=== PATIENT | male | born 1935 | race Caucasian/White ===

== ENCOUNTER 2018-10-15 22:48 | Inpatient (IN) ==
[2018-10-15] MEDS ORDERED: ADENOSINE 3 MG/ML DISP.SYRIN IV ONE ×2 (23:03→23:13)
--- NOTE | 2018-10-15 23:04 | ERNOTE ---
Dyspnea - General Presenting Symptoms: shortness of breath Time Seen by Provider: 10/15/18 22:51 Source: patient, EMS Exam Limitations: no limitations - Immun/Allergies/Home Medications Immunizations: IMMUNIZATION HX Immunizations Up to Date No History of Influenza Vaccine No Hx Pneumococcal Vaccination No Allergies/Adverse Reactions: Allergies Penicillins Allergy (Verified 10/15/18 22:57) Home Medications: HOME MEDICATIONS Tamsulosin HCl [Flomax] 0.4 mg PO DAILY@1800 05/18/18 [Last Taken Unknown] - History of Present Illness Narrative: Pt states he has been not feeling well without specific symptoms for a couple of days. Tonight he was very tired and had a "hot flash", became short of breath and weak. He denies chest pain but states "it doesn't feel right". 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 Absent: fever, chills EYE: Absent: vision changes ENT: Absent: nose congestion, nasal drainage Respiratory: Present: shortness of breath. Absent: cough Cardiology: Absent: chest pain, edema Gastrointestinal/Abdominal: Present: other - states his stomach doesn't feel right. . Absent: nausea, vomiting, abdominal pain Genitourinary: Absent: frequency, dysuria Medical History (Last Reviewed 10/16/18 @ 03:20 by Albaro Olea DO) Acute liver failure Pancreatic cancer BPH (benign prostatic hyperplasia) Surgical History: Surgical History (Last Reviewed 10/16/18 @ 03:20 by Albaro Olea DO) H/O transurethral resection of prostate History of transurethral resection of prostate Family History: Family History (Last Reviewed 10/16/18 @ 03:20 by Albaro Olea DO) Other Family history non-contributory Social History: Preferred Language Icelandic Abuse History No History of abuse Psych History No pertinent hx (Last Updated 06/07/18 @ 17:44 by Aidan Urena DO) No Social History Section defined Physical Exam - Physical Exam General Appearance: Present: wd/wn, alert, mild distress Head Exam: Present: normal inspection, no evidence of injury Ears, Nose, Throat: Present: normal ENT inspection Neck: Present: normal inspection, nontender Respiratory: Present: no respiratory distress, normal breath sounds, no accessory muscle use Cardiovascular/Chest: Present: no murmur, tachycardia Gastrointestinal/Abdominal: Present: normal bowel sounds, nontender, soft Back Exam: Present: normal inspection, normal range of motion, no vertebral tenderness Extremity Exam: Present: normal inspection, normal range of motion, no edema Neurological Exam: Present: alert, oriented, normal mood/affect, no motor/sensory deficits Skin Exam: Present: warm/dry, pallor Progress - Results and Orders Patient's Lab Results:: I have reviewed the patient's lab results. Results and Orders: Laboratory Tests 10/15/18 10/15/18 10/15/18 23:59 23:59 23:59 WBC 11.2 H Hgb 13.9 Hct 41.3 L Plt Count 224 PT 13.0 H INR (Anticoag Therapy) 1.30 H PTT ([place]) 29.8 Sodium 136 Potassium 4.0 Chloride 101 Carbon Dioxide 24.5 BUN 25 H Creatinine 1.38 Random Glucose 279 H Calcium 9.3 Total Bilirubin 1.7 H AST 36 ALT 33 Alkaline Phosphatase 117 Troponin I 0.034 B-Natriuretic Peptide 6639 H Total Protein 6.9 Albumin 3.3 L - Vital Signs Patient's Vital Signs:: I have reviewed the patient's vital signs. - EKG EKG #1 EKG: atrial flutter, nonspecific ST T wave changes EKG read: Interp. by me - X-Ray X-Ray #1 X-Ray: chest Interpretation: Reviewed by me X-ray Comments: IMPRESSION: FINDINGS SUGGESTIVE OF INTERSTITIAL PULMONARY EDEMA/CHF. Electronically signed by Jayson May D.O. - Progress/Reassessment Progress:: Improved Progress Note-Subjective: 10/16/18 02:14 I spoke with he agrees with admit. 10/16/18 02:57 initially pt appeared to be in SVT, 6 mg adenosine was given without any response, 12 mg adenosine was given and pt had bradycardic ventricular response which showed underlying atrial flutter. Pt's ventricular rate fairly quickly came back up to the 130's and regular. 30 mg of cardizem was then given and shortly into the administration of cardizem the pt went into ventricular fi brillation cardizem was stopped. Defibrillation pads were applied and just before we were able defibrillate the patient spontaneously returned to the atrial flutter with RVR at 120-130 bpm. Labatolol was then given to assist in rate control which brought the rate down to 105-110 but his BP also declined to 90'/50's. HR over the next 60-90 min returned to the 120's as well as BP of 130's/60's. Metoprolol 5 mg was then given for rate control just prior to admission. Departure Clinical Impression: Atrial flutter with rapid ventricular response - Departure Disposition: Still a patient Condition: Fair
[2018-10-15] MEDS ORDERED: DILTIAZEM HCL 5 MG/ML VIAL IV ONE (23:16)
[2018-10-15] MEDS ORDERED: MORPHINE SULFATE 4 MG/ML SYRG ONE (23:26)
[2018-10-15] MEDS ORDERED: AMIODARONE HCL 50 MG/ML AMPUL IV STA (23:29)
[2018-10-16 00:16] LABS: Hematocrit 41.3 % (42.0-52.0); Hemoglobin 13.9 gm/dL (13.5-18.0); Mean Cell Volume 88.8 fl (78-100); Mean Corpuscular Hemoglobin 29.9 pg (27-31); Mean Corpuscular Hgb Conc 33.7 g/dl (32-36); Mean Platelet Volume 11.7 fl (8-11.3); Neutrophil # 7.5 K/mm3 (1.3-6.0); Neutrophil % 67.4 % (42-75.0); Platelet Count 224 K/mm3 (150-450); Red Blood Count 4.65 M/mm3 (4.7-6.0); Red Cell Distribution Width 13.8 % (11.5-14.0); White Blood Count 11.2 K/mm3 (4.0-10.5)
[2018-10-16 00:17] LABS: Albumin * 3.3 gm/dl (3.4-5.0); Anion Gap 14.5 mmol/L (6.8-13.8); BUN/Creatinine Ratio 18.1 (9.0-21.6); Bilirubin, Total 1.7 mg/dL (0.0-1.1); Ca. Corrected For Albumin 9.5 mg/dL (8.4-10.2); Calcium * 9.3 mg/dL (7.9-10.9); Carbon Dioxide 24.5 mmol/L (24-32.6); INR 1.3 INR (0.90-1.10); Partial Thrombolplastin Time 29.8 Seconds (24-32); Total Protein 6.9 gm/dL (6.2-8.2); Troponin I 0.034 ng/mL (0.00-0.10)
[2018-10-16] MEDS ORDERED: LABETALOL HCL 5 MG/ML VIAL IV ONE (00:32)
[2018-10-16] MEDS ORDERED: PROCHLORPERAZINE EDISYLATE 5 MG/ML VIAL IV ONE (01:11)
[2018-10-16] MEDS ORDERED: FUROSEMIDE 10 MG/ML VIAL IV ONE (02:21)
[2018-10-16] MEDS ORDERED: ENOXAPARIN SODIUM 100 MG/ML SYRG SC ONE (02:32)
[2018-10-16] MEDS ORDERED: ENOXAPARIN SODIUM 30 MG/0.3 ML SYRG SC ONE (02:32)
[2018-10-16] MEDS ORDERED: METOPROLOL TARTRATE 1 MG/ML AMPUL IV ONE ×2 (02:45→10:37)
[2018-10-16] MEDS ORDERED: METOPROLOL TARTRATE 25 MG TABLET PO SCH (09:00)
[2018-10-16] MEDS: ENOXAPARIN SODIUM 40 MG/0.4 ML SYRG SC SCH (10:35)
--- NOTE | 2018-10-16 10:38 | HP ---
Chief Complaint - Chief Complaint Date of Service: 10/16/18 Time of Service: 10:37 Chief Complaint: Shortness of breath History of Present Illness: Moe is an 83 yo male with recent diagnosis of pancreatic cancer and biliary obstruction who about 3 weeks ago underwent stenting of his biliary tract. Since then he reports he has been doing ok. He is set to see oncology next week to discuss chemotherapy. He reports last night prior to going to sleep he was having a hot flash, but occasionally gets these. He was awakened from sleep feeling significantly short of breath and having fast heart rate. He presented to the [facility] ER and was found to be in SVT with a rate of 130s. Per the ER documentation he was given 6 mg adenosine without any response, 12 mg adenosine was given and pt had bradycardic ventricular response which showed underlying atrial flutter. Pt's ventricular rate fairly quickly came back up to the 130's and regular. 30 mg of cardizem was then given and shortly into the administration of cardizem the pt went into ventricular fibrillation cardizem was stopped. Defibrillation pads were applied and just before they were able defibrillate, the patient spontaneously returned to the atrial flutter with RVR at 120-130 bpm. Labatolol was then given to assist in rate control which brought the rate down to 105-110 but his BP also declined to 90'/50's. HR over the next 60-90 min returned to the 120's as well as BP of 130's/60's. Metoprolol 5 mg was then given for rate control just prior to admission. With the metoprolol his heart rate remained in the 120s. Overall Moe reports feeling better at this time and has no concerns. He does admit to shortness of breath with activity but none while resting. He has had no recent changes in medication, and only takes Fosamax. He denies chest pain. Medical History (Last Reviewed 10/16/18 @ 04:13 by Meghan Grande RN) Acute liver failure Pancreatic cancer BPH (benign prostatic hyperplasia) Surgical History: Surgical History (Last Reviewed 10/16/18 @ 04:13 by Meghan Grande RN) H/O transurethral resection of prostate History of transurethral resection of prostate Family History: Family History (Last Reviewed 10/16/18 @ 04:13 by Meghan Grande RN) Other Family history non-contributory Social History: Patient Lives/Resources Home Utilized Occupation retired Preferred Language [place] Islander Do you have any confucianism or No cultural preference? Smoking Status Former smoker Have you smoked in the past 12 No months Do you dip or chew tobacco No Abuse History No History of abuse Psych History No pertinent hx Alcohol Use none Drug Use none (Last Updated 06/07/18 @ 17:44 by Aidan Urena DO) No Social History Section defined Review Of Systems (GEN) - Review of Systems Generalized/Overall Review: Present: Weakness. Absent: Chills, Fever EENTM: Present: No Symptoms Reported Respiratory: Present: Shortness of Breath. Absent: Cough Cardiac: Present: Palpitations. Absent: Chest Pain, Edema, Syncope Abdominal: Absent: Nausea, Vomiting Genitourinary: Present: No Symptoms Reported Musculoskeletal: Present: No Symptoms Reported Neurological: Present: No Symptoms Reported Skin: Present: No Symptoms Reported Endocrine: Present: No Symptoms Reported Immunizations: IMMUNIZATION HX Immunizations Up to Date No History of Influenza Vaccine No Hx Pneumococcal Vaccination No Allergies/Adverse Reactions: Allergies Allergy/AdvReac Type Severity Reaction Status Date / Time Penicillins Allergy Verified 10/15/18 22:57 Home Medications: HOME MEDICATIONS Tamsulosin HCl [Flomax] 0.4 mg PO DAILY@1800 05/18/18 [Last Taken Unknown] Exam - Exam Vital Signs: Vital Signs - Last Taken Temp 36.1 C 10/16/18 08:43 Pulse 130 H 10/16/18 10:07 Resp 24 H 10/16/18 08:43 BP 122/60 10/16/18 10:01 Pulse Ox 97 10/16/18 08:43 Constitutional: Present: Alert, Oriented x3, Cooperative ENT Exam: Present: hearing grossly normal Eye Exam: bilateral eye: normal inspection Respiratory: Present: lungs clear, no respiratory distress Cardiovascular/Chest: Present: no edema, tachycardia Abdomen: Present: Normal bowel sounds, soft, other - round Extremity: Present: normal inspection, normal capillary refill Skin Exam: Present: warm/dry, no cyanosis, jaundice Neurologic: Present: alert, normal mood/affect, oriented x 3 Appearance: Present: appropriate appearance, appropriate insight Eye contact: Present: cooperative, good eye contact, normal speech Thoughts: Present: normal thought pattern, no apparent hallucination Diagnostic Studies: Abnormal Lab Results 10/15/18 10/15/18 10/15/18 Range/Units 23:59 23:59 23:59 WBC 11.2 H (4.0-10.5) K/mm3 RBC 4.65 L (4.7-6.0) M/mm3 Hct 41.3 L (42.0-52.0) % MPV 11.7 H (8-11.3) fl Immature Gran # (Auto) 0.05 H (0.000-0.0310) K/mm3 Neutrophils # 7.5 H (1.3-6.0) K/mm3 PT 13.0 H (9.0-11.0) Seconds INR (Anticoag Therapy) 1.30 H (0.90-1.10) INR Anion Gap 14.5 H (6.8-13.8) mmol/L BUN 25 H (6-23) mg/dL Est GFR (Non-Af Amer) 53 L D (60-130) mL/min Random Glucose 279 H (70-110) mg/dL Total Bilirubin 1.7 H (0.0-1.1) mg/dL B-Natriuretic Peptide 6639 H (5-650) pg/mL Albumin 3.3 L (3.4-5.0) gm/dl Laboratory Results WBC 11.2 K/mm3 (4.0-10.5) H 10/15/18 23:59 RBC 4.65 M/mm3 (4.7-6.0) L 10/15/18 23:59 Hgb 13.9 gm/dL (13.5-18.0) 10/15/18 23:59 Hct 41.3 % (42.0-52.0) L 10/15/18 23:59 MCV 88.8 fl (78-100) 10/15/18 23:59 MCH 29.9 pg (27-31) 10/15/18 23:59 MCHC 33.7 g/dl (32-36) 10/15/18 23:59 RDW 13.8 % (11.5-14.0) 10/15/18 23:59 Plt Count 224 K/mm3 (150-450) 10/15/18 23:59 MPV 11.7 fl (8-11.3) H 10/15/18 23:59 Immature Gran % (Auto) 0.40 % (0.001-0.429) 10/15/18 23:59 Immature Gran # (Auto) 0.05 K/mm3 (0.000-0.0310) H 10/15/18 23:59 Neutrophils % 67.4 % (42-75.0) 10/15/18 23:59 Lymphocytes % 21.6 % (20-51) 10/15/18 23:59 Monocytes % 7.8 % (0.0-9) 10/15/18 23:59 Eosinophils % 2.3 % (0.0-3.0) 10/15/18 23:59 Basophils % 0.5 % (0.0-1.0) 10/15/18 23:59 Nucleated RBC % 0.0 k/mm3 (0-1) 10/15/18 23:59 Neutrophils # 7.5 K/mm3 (1.3-6.0) H 10/15/18 23:59 Lymphocytes # 2.41 k/mm3 (1.5-3.5) 10/15/18 23:59 Monocytes # 0.9 k/mm3 (0.0-1.0) 10/15/18 23:59 Eosinophils # 0.3 k/mm3 (0.0-0.7) 10/15/18 23:59 Absolute Basophils 0.1 k/mm3 (0.0-0.1) 10/15/18 23:59 PT 13.0 Seconds (9.0-11.0) H 10/15/18 23:59 INR (Anticoag Therapy) 1.30 INR (0.90-1.10) H 10/15/18 23:59 PTT ([place]) 29.8 Seconds (24-32) 10/15/18 23:59 Sodium 136 mmol/L (132-142) 10/15/18 23:59 Plasma Sodium 139 mmol/L (130-142) 10/15/18 23:59 Potassium 4.0 mmol/L (3.4-4.6) 10/15/18 23:59 Chloride 101 mmol/L (97-106) 10/15/18 23:59 Carbon Dioxide 24.5 mmol/L (24-32.6) 10/15/18 23:59 Anion Gap 14.5 mmol/L (6.8-13.8) H 10/15/18 23:59 BUN 25 mg/dL (6-23) H 10/15/18 23:59 Creatinine 1.38 mg/dL (0.4-1.4) 10/15/18 23:59 Est GFR (Non-Af Amer) 53 mL/min (60-130) L D 10/15/18 23:59 BUN/Creatinine Ratio 18.1 (9.0-21.6) 10/15/18 23:59 Random Glucose 279 mg/dL (70-110) H 10/15/18 23:59 Calcium 9.3 mg/dL (7.9-10.9) 10/15/18 23:59 Calcium Adj for Albumin 9.5 mg/dL (8.4-10.2) 10/15/18 23:59 Total Bilirubin 1.7 mg/dL (0.0-1.1) H 10/15/18 23:59 AST 36 U/L (0-48) 10/15/18 23:59 ALT 33 U/L (19-67) 10/15/18 23:59 Alkaline Phosphatase 117 U/L (50-170) 10/15/18 23:59 Troponin I 0.034 ng/mL (0.00-0.10) 10/15/18 23:59 B-Natriuretic Peptide 6639 pg/mL (5-650) H 10/15/18 23:59 Total Protein 6.9 gm/dL (6.2-8.2) 10/15/18 23:59 Albumin 3.3 gm/dl (3.4-5.0) L 10/15/18 23:59 Assessment/Plan - Narrative Narrative: Moe is an 83 yo male with recent diagnosis of pancreatic cancer with biliary obstruction requiring biliary stenting. He will be admitted for new onset atrial flutter with rapid ventricular response of unknown etiology. Initially tried to control heart rate with metoprolol but this was unsuccessful. He will be started on diltiazem IV then continued on oral for rate control. 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 - Assessment/Plan (1) Atrial flutter with rapid ventricular response Problem: Acute (2) Pancreatic cancer Problem: Acute (3) Biliary obstruction Problem: Acute
[2018-10-16] MEDS: DILTIAZEM HCL 30 MG TABLET PO SCH ×2 (13:26→20:02)
[2018-10-16] MEDS ORDERED: DILTIAZEM HCL 5 MG/ML VIAL IV ONE (14:38)
[2018-10-16] MEDS ORDERED: DILTIAZEM HCL 30 MG TABLET PO ONE ×2 (17:30→22:43)
[2018-10-17] MEDS: DILTIAZEM HCL 60 MG TABLET PO SCH ×3 (08:02→23:25)
[2018-10-17 08:41] LABS: Hematocrit 40.3 % (42.0-52.0); Hemoglobin 13.7 gm/dL (13.5-18.0); Mean Cell Volume 88.8 fl (78-100); Mean Corpuscular Hemoglobin 30.2 pg (27-31); Mean Platelet Volume 11.7 fl (8-11.3); Neutrophil # 6.5 K/mm3 (1.3-6.0); Platelet Count 263 K/mm3 (150-450); Red Blood Count 4.54 M/mm3 (4.7-6.0); White Blood Count 9.6 K/mm3 (4.0-10.5)
[2018-10-17 08:54] LABS: Albumin * 3.3 gm/dl (3.4-5.0); Anion Gap 17.6 mmol/L (6.8-13.8); BUN/Creatinine Ratio 21.2 (9.0-21.6); Bilirubin, Total 1.5 mg/dL (0.0-1.1); Ca. Corrected For Albumin 9.3 mg/dL (8.4-10.2); Calcium * 9.1 mg/dL (7.9-10.9); Carbon Dioxide 23.2 mmol/L (24-32.6); Potassium 3.8 mmol/L (3.4-4.6); Total Protein 6.9 gm/dL (6.2-8.2)
[2018-10-17 09:08] LABS: Troponin I 0.035 ng/mL (0.00-0.10)
[2018-10-17] MEDS: AMIODARONE HCL 200 MG TABLET PO SCH ×2 (10:13→17:25)
[2018-10-17] MEDS: ENOXAPARIN SODIUM 40 MG/0.4 ML SYRG SC SCH (10:22)
[2018-10-17] MEDS: RIVAROXABAN 20 MG TABLET PO SCH (14:02)
--- NOTE | 2018-10-17 16:51 | PN ---
Subjective - Date and Time Seen Date: 10/17/18 Time: 16:51 Subjective Narrative: Patient much more comfortable today than previous night of admission. Heart rate still in the 120s-130s despite diltiazem and amiodarone therapy. He does not feel this, he is asymptomatic and maintaining good sats. He denies any chest pain or shortness of breath at this time. No acute events overnight, states he feels well. Objective - Review of Systems Generalized/Overall Review: Reports: Weakness. Denies: Chills, Fever EENTM: Reports: No Symptoms Reported Respiratory: Denies: Cough, Shortness of Breath Cardiac: Denies: Chest Pain, Palpitations Abdominal: Denies: Nausea, Vomiting Genitourinary Symptoms: Reports: No Symptoms Reported Musculoskeletal Complaints: Reports: No Symptoms Reported Neurological: Reports: No Symptoms Reported Skin: Reports: No Symptoms Reported Endocrine: Reports: No Symptoms Reported - Vitals Vitals: Last Vital Signs Temp 37.0 C 10/17/18 14:20 Pulse 129 H 10/17/18 16:19 Resp 18 10/17/18 14:20 BP 108/80 10/17/18 16:19 Pulse Ox 98 10/17/18 14:20 - Abnormal Lab Findings Abnormal Lab Findings: Abnormal Lab Results 10/17/18 10/17/18 Range/Units 08:25 08:25 RBC 4.54 L (4.7-6.0) M/mm3 Hct 40.3 L (42.0-52.0) % MPV 11.7 H (8-11.3) fl Immature Gran # (Auto) 0.04 H (0.000-0.0310) K/mm3 Neutrophils # 6.5 H (1.3-6.0) K/mm3 Carbon Dioxide 23.2 L (24-32.6) mmol/L Anion Gap 17.6 H (6.8-13.8) mmol/L BUN 29 H (6-23) mg/dL Est GFR (Non-Af Amer) 53 L (60-130) mL/min Random Glucose 171 H D (70-110) mg/dL Total Bilirubin 1.5 H (0.0-1.1) mg/dL B-Natriuretic Peptide 6831 H (5-650) pg/mL Albumin 3.3 L (3.4-5.0) gm/dl - Exam Constitutional: Present: Alert, Oriented x3, Elderly, Obese ENT Exam: Present: hard of hearing Neck: Present: supple Respiratory: Present: lungs clear, normal breath sounds Cardiovascular/Chest: Present: no edema, tachycardia Abdomen: Present: Normal bowel sounds, soft, nontender /Rectal: Present: Exam deferred Skin Exam: Present: normal color, warm/dry Appearance: Present: appropriate appearance, appropriate insight Eye contact: Present: cooperative, good eye contact Thoughts: Present: normal thought pattern, normal mood /affect Assessment/Plan Plan Narrative: Patient is a fairly poor historian, unsure as to what is going on with his possible pancreatic cancer. States he is headed to [place] in 4 days to see his oncologist to discuss this. This is making treatment of his a flutter slightly more complicating as I do not know his prognosis and therefore do not know if he needs aggressive cardiac management including ablation of his a flutter. Currently on amiodarone and diltiazem which is keeping him slightly controlled in the 120s which is better than what he came in on, but more so he is asymptomatic and not having any issues from this elevated rate. Also when his rate was better controlled he had difficulty maintaining blood pressures and so trying to decide if being more aggressive with his rate control is going to be beneficial for him. More than likely he would be better off going on hospice care for comfort measures if he truly has pancreatic cancer but this is unknown at this time and waiting for records from [place]. Waiting on results for an echo that was done today. Currently patient feels well and asymptomatic. Started him on Xarelto for blood thinning due to his a flutter. He is on a regular diet. His home medications for his chronic medical issues have been restarted. The nurses will call me with any questions or concerns in regards to his health. - Problems/Diagnosis (1) Atrial flutter with rapid ventricular response Problem: Acute (2) Pancreatic cancer Problem: Acute (3) Biliary obstruction Problem: Acute
[2018-10-18] MEDS: AMIODARONE HCL 200 MG TABLET PO SCH ×3 (01:41→17:15)
[2018-10-18] MEDS: DILTIAZEM HCL 60 MG TABLET PO SCH ×2 (08:09→17:14)
[2018-10-18] MEDS: RIVAROXABAN 20 MG TABLET PO SCH (08:09)
[2018-10-18] MEDS: ENOXAPARIN SODIUM 40 MG/0.4 ML SYRG SC SCH (10:16)
--- NOTE | 2018-10-18 13:19 | ECHO ---
This report is available in the EMR
[2018-10-18] MEDS ORDERED: METOPROLOL TARTRATE 1 MG/ML AMPUL IV ONE (15:35)
--- NOTE | 2018-10-18 18:47 | DS ---
(1) Atrial flutter with rapid ventricular response Problem: Acute (2) Pancreatic cancer Problem: Acute (3) Biliary obstruction Problem: Acute Description of Stay: 83-year-old patient presented to the hospital with palpitations shortness of breath. Was found to be in SVT, was given adenosine which brought him back down into an underlying rhythm of atrial flutter. He was started on a beta-yevgeniy but this made his blood pressure too low and he became symptomatic while on this so this was stopped. He was then started on Cardizem which helped with his rate but he was stated in the 130s so amiodarone was also started. Between the 2 medications he is been asymptomatic in the 120s and 130s since arrival here. Patient started going in and out of SVT over the last 12-18 hours at an increasing rate. He has roughly 3-5 beats of V. tach 2-3 times per minute currently. He again is unable to tolerate a beta-yevgeniy because it lowers his blood pressure to the point where he becomes symptomatic (short of breath, dizzy, lightheaded). I called and spoke with a patient accounting representative at the [facility] who was able to look at his information and thinks that possibly the patient was going into V. tach due to his worsening ventricular function as he had an echo done here that showed him to have an ejection fraction of 31%. Nutrition Manager stated that he would be willing to accept the patient the patient wished to be transferred up there tonight for workup of his heart condition. He was very pleasant and offered great insight and help with this condition at this time. He also stated that he did not think he needed to be on Xarelto but wanted to leave this up to the patient's choice after explaining both the pros and the cons of continuing this medication. Patient and the family decided that they wished to speak with the oncologist about this before starting it, the medication will be sent to the pharmacy if they decided that it was needed. The patient has a history of adenocarcinoma of the pancreas and is planning on seeing his oncologist in 3 days from now. His prognosis is unknown and he is unsure as to whether or not he wants to undergo a cardiac workup at this time. I explained to him that he could be transferred up there and begin that process if he wishes to. The patient accounting representative at the [facility] were willing to do everything thye could to help him but I also explained to him that he may have a poor prognosis with his cancer and that the workup and treatment that comes from what is discovered may not be worth the effort that is going into fixing his heart if he only had a short period of time left to live. The time may be better spent with family and friends. I explained the risk of ventricular tachycardia with the patient, his , and his son-in-law in detail including the likelihood of if he were to to go into V. tach and not come out of it as he has been. The patient and his asked if I thought he would be able to make it until Monday to see his oncologist and I told in the simple answer was I did not know. The patient then expressed desire to go home so that he can watch basketball in his house, sleep in his bed, and take a hot shower if he wished. I told him I would send him home on the amiodarone dose and Cardizem dose that he was receiving here in the hospital and that he should take both medicines as directed until he sees his oncologist. I did explain to him that he needs to either stay there if he gets good news from the oncologist and have a workup started with the cardiology team up there if they feel like that is appropriate or he may return in follow-up with me early next week to discuss how everything went with oncology and cardiology depending on the prognosis of his cancer. Both the patient and his family were appreciative and pleasant to speak with during this hard time. He was discharged home in critical condition and plans to follow-up with his oncologist, possible patient accounting representative, and possibly myself next week. They definitely can call the clinic with any questions or concerns that they may have. Procedures Performed: none Results and Findings: Lab Pending Results 10/15/18 23:59: WBC 11.2 H, RBC 4.65 L, Hgb 13.9, Hct 41.3 L, MCV 88.8, MCH 29.9, MCHC 33.7, RDW 13.8, Plt Count 224, MPV 11.7 H, Immature Gran % (Auto) 0.40, Immature Gran # (Auto) 0.05 H, Neutrophils % 67.4, Lymphocytes % 21.6, Monocytes % 7.8, Eosinophils % 2.3, Basophils % 0.5, Nucleated RBC % 0.0, Neutrophils # 7.5 H, Lymphocytes # 2.41, Monocytes # 0.9, Eosinophils # 0.3, Absolute Basophils 0.1 10/15/18 23:59: PT 13.0 H, INR (Anticoag Therapy) 1.30 H, PTT ([place]) 29.8 10/15/18 23:59: Sodium 136, Plasma Sodium 139, Potassium 4.0, Chloride 101, Carbon Dioxide 24.5, Anion Gap 14.5 H, BUN 25 H, Creatinine 1.38, Est GFR (Non- Af Amer) 53 L D, BUN/Creatinine Ratio 18.1, Random Glucose 279 H, Calcium 9.3, Calcium Adj for Albumin 9.5, Total Bilirubin 1.7 H, AST 36, ALT 33, Alkaline Phosphatase 117, Troponin I 0.034, B-Natriuretic Peptide 6639 H, Total Protein 6.9, Albumin 3.3 L 10/17/18 08:25: WBC 9.6, RBC 4.54 L, Hgb 13.7, Hct 40.3 L, MCV 88.8, MCH 30.2, MCHC 34.0, RDW 14.0, Plt Count 263, MPV 11.7 H, Immature Gran % (Auto) 0.40, Immature Gran # (Auto) 0.04 H, Neutrophils % 67.0, Lymphocytes % 20.8, Monocytes % 8.3, Eosinophils % 2.9, Basophils % 0.6, Nucleated RBC % 0.0, Neutrophils # 6.5 H, Lymphocytes # 2.00, Monocytes # 0.8, Eosinophils # 0.3, Absolute Basophils 0.1 10/17/18 08:25: Sodium 137, Plasma Sodium 138, Potassium 3.8, Chloride 100, Carbon Dioxide 23.2 L, Anion Gap 17.6 H, BUN 29 H, Creatinine 1.37, Est GFR (Non-Af Amer) 53 L, BUN/Creatinine Ratio 21.2, Random Glucose 171 H D, Calcium 9.1, Calcium Adj for Albumin 9.3, Total Bilirubin 1.5 H, AST 39, ALT 44, Alkaline Phosphatase 121, Troponin I 0.035, B-Natriuretic Peptide 6831 H, Total Protein 6.9, Albumin 3.3 L Discharge Location: Home Disposition: Home self-care Condition: Critical Discharge Activity: Activity as tolerated Discharge Diet: General/regular food Referrals: Aidan Urena DO [Primary Care Provider] - (Please make appointment to see me either Monday or Monday of next week) Additional Patient Instructions (free text): -Please make TCM appointment unless half-way discharge. Thank you! Macie @ [phone]. Prescriptions (Any new or edited meds): Amiodarone HCl [Cordarone] 400 mg PO Q8H #90 tab Diltiazem HCl [Cardizem] 60 mg PO Q8H #90 tab Rivaroxaban [Xarelto] 20 mg PO DAILY #30 tab Tamsulosin HCl [Flomax] 0.4 mg PO DAILY@1800 #30 cap.sr.24h Complete Home Medications List: Complete Home Medication List: Amiodarone HCl [Cordarone] 400 mg PO Q8H #90 tab 10/18/18 Diltiazem HCl [Cardizem] 60 mg PO Q8H #90 tab 10/18/18 Rivaroxaban [Xarelto] 20 mg PO DAILY #30 tab 10/18/18 Tamsulosin HCl [Flomax] 0.4 mg PO DAILY@1800 #30 cap.sr.24h 10/18/18
[2018-10-18 20:46] VITALS: BP 123/69
== END 2018-10-18 19:45 | disposition home or self-care (01) | DRG 308 ==
LOC: ER 22:48 → MS 10-16 02:20
PROVIDERS: ADMIT Family Medicine; ATTEND Family Medicine
DX: I48.92 Unspecified atrial flutter; K83.1 Obstruction of bile duct; C25.9 Malignant neoplasm of pancreas, unspecified
CPT/HCPCS: 36415; 71010; 71045; 80053; 83519; 83880; 84484; 85025; 85610; 85730; 93005; 93306; 96374; 96375; 96376; 99285

== ENCOUNTER 2018-11-02 23:35 | Observation (INO) ==
--- NOTE | 2018-11-02 23:57 | ERNOTE ---
Dyspnea - General Presenting Symptoms: shortness of breath Time Seen by Provider: 11/02/18 23:45 Source: patient, family Exam Limitations: no limitations - Immun/Allergies/Home Medications Immunizations: IMMUNIZATION HX Immunizations Up to Date No History of Influenza Vaccine No Hx Pneumococcal Vaccination No Allergies/Adverse Reactions: Allergies Penicillins Allergy (Verified 10/15/18 22:57) Home Medications: HOME MEDICATIONS Amiodarone HCl [Cordarone] 400 mg PO Q8H #90 tab 10/18/18 [Last Taken Unknown] Diltiazem HCl [Cardizem] 60 mg PO Q8H #90 tab 10/18/18 [Last Taken Unknown] Rivaroxaban [Xarelto] 20 mg PO DAILY #30 tab 10/18/18 [Last Taken Unknown] Tamsulosin HCl [Flomax] 0.4 mg PO DAILY@1800 #30 cap.sr.24h 10/18/18 [Last Taken Unknown] - History of Present Illness Narrative: Pt presents with shortness of breath that has been ongoing for a few weeks. Tonight pt had acute onset of increased shortness of breath. EMS was called. Pt felt better with O2 and sitting up in the ambulance. Severity: mild Treatment CRITICAL CARE EDUCATOR: by patient Frequency of episodes: Reports: frequent episodes Modifying Factors - (Improves): Reports: oxygen Modifying Factors (Worsens): Reports: activity, lying down Associated Symptoms-Dyspnea: Denies: fever/chills, sweating, chest pain/discomfort Prior Treatment: Reports: recently seen, treated by physician, previous episodes Review of Systems - Review of Systems Constitutional: Present: recent illness. Absent: fever, chills EYE: Absent: vision changes ENT: Absent: nose congestion, nasal drainage Respiratory: Present: shortness of breath - and symptoms at rest, cough, orthopnea Cardiology: Present: edema. Absent: chest pain, palpitations Gastrointestinal/Abdominal: Absent: nausea, vomiting Genitourinary: Present: decreased urinary output Musculoskeletal: Absent: joint pain, joint swelling Skin: Absent: rash Neurological: Absent: numbness, tingling Endocrine: Present: excessive sweating. Absent: flushing Hematologic/Lymphatic: Present: easy bruising, easy bleeding Medical History (Last Updated 11/03/18 @ 02:32 by Albaro Olea DO) CHF (congestive heart failure), NYHA class IV (Acute) Acute liver failure BPH (benign prostatic hyperplasia) Pancreatic cancer Surgical History: Surgical History (Last Reviewed 11/03/18 @ 02:40 by Albaro Olea DO) H/O transurethral resection of prostate History of transurethral resection of prostate Family History: Family History (Last Reviewed 11/03/18 @ 02:40 by Albaro Olea DO) Other Family history non-contributory Social History: Preferred Language Vincentian Smoking Status Former smoker Abuse History No History of abuse Psych History No pertinent hx (Last Updated 06/07/18 @ 17:44 by Aidan Urena DO) No Social History Section defined Physical Exam - Physical Exam General Appearance: Present: wd/wn, alert, mild distress Head Exam: Present: normal inspection, no evidence of injury Ears, Nose, Throat: Present: normal ENT inspection Neck: Present: normal inspection, nontender, supple Respiratory: Present: no respiratory distress, normal breath sounds, lungs clear Cardiovascular/Chest: Present: irregularly irregular Gastrointestinal/Abdominal: Present: normal bowel sounds, nontender, nondistended, soft Extremity Exam: Present: normal inspection, normal range of motion, no edema Neurological Exam: Present: alert, oriented, normal mood/affect, no motor/sensory deficits Skin Exam: Present: normal color, warm/dry Lymphatic Exam: Present: no adenopathy Progress - Results and Orders Patient's Lab Results:: I have reviewed the patient's lab results. Results and Orders: Laboratory Tests 11/03/18 11/03/18 00:00 00:00 WBC 8.8 Hgb 12.4 L Hct 37.1 L Plt Count 223 Sodium 133 Potassium 4.3 Chloride 100 BUN 19 Creatinine 1.12 Random Glucose 219 H Calcium 9.0 Total Bilirubin 0.6 AST 15 ALT 19 Alkaline Phosphatase 88 Troponin I Less than 0.017 B-Natriuretic Peptide 2321 H Total Protein 6.4 Albumin 3.2 L - Vital Signs Patient's Vital Signs:: I have reviewed the patient's vital signs. - EKG EKG #1 EKG: atrial flutter, nonspecific ST T wave changes EKG read: Interp. by me - X-Ray X-Ray #1 X-Ray: chest Interpretation: Interp. by me X-ray Comments: moderate pulmonary edema without infiltrate or effusion. Cardiomegaly - Progress/Reassessment Progress:: Improved - slightly Progress Note-Subjective: 11/03/18 02:[address] Bridges and he agrees with observation admission. Departure Clinical Impression: CHF (congestive heart failure), NYHA class IV Qualifiers: Congestive heart failure type: systolic Congestive heart failure chronicity: acute on chronic Qualified Code(s): I50.23 - Acute on chronic systolic (congestive) heart failure Atrial fibrillation Qualifiers: Atrial fibrillation type: chronic Qualified Code(s): I48.2 - Chronic atrial fibrillation - Departure Disposition: Still a patient Condition: Fair
[2018-11-03 00:05] LABS: Hematocrit 37.1 % (42.0-52.0); Hemoglobin 12.4 gm/dL (13.5-18.0); Mean Cell Volume 91.8 fl (78-100); Mean Corpuscular Hemoglobin 30.7 pg (27-31); Mean Corpuscular Hgb Conc 33.4 g/dl (32-36); Mean Platelet Volume 10.4 fl (8-11.3); Neutrophil # 5.8 K/mm3 (1.3-6.0); Neutrophil % 65.2 % (42-75.0); Platelet Count 223 K/mm3 (150-450); Red Blood Count 4.04 M/mm3 (4.7-6.0); Red Cell Distribution Width 14.9 % (11.5-14.0); White Blood Count 8.8 K/mm3 (4.0-10.5)
[2018-11-03 00:25] LABS: ALT 19 U/L (19-67); AST 15 U/L (0-48); Albumin * 3.2 gm/dl (3.4-5.0); Alkaline Phosphatase * 88 U/L (50-170); Anion Gap 10.5 mmol/L (6.8-13.8); BNP * 2321 pg/mL (5-650); Bilirubin, Total 0.6 mg/dL (0.0-1.1); Blood Urea Nitrogen 19 mg/dL (6-23); Ca. Corrected For Albumin 9.3 mg/dL (8.4-10.2); Carbon Dioxide 26.8 mmol/L (24-32.6); Chloride 100 mmol/L (97-106); Glucose * 219 mg/dL (70-110); Potassium 4.3 mmol/L (3.4-4.6); Sodium 133 mmol/L (132-142); Total Protein 6.4 gm/dL (6.2-8.2)
[2018-11-03 00:27] LABS: Troponin I Less than 0.017 ng/mL (0.00-0.10)
[2018-11-03] MEDS ORDERED: FUROSEMIDE 10 MG/ML VIAL IV ONE ×2 (00:33→14:21)
[2018-11-03 06:42] LABS: Troponin I 0.018 ng/mL (0.00-0.10)
[2018-11-03] MEDS: RIVAROXABAN 20 MG TABLET PO SCH (14:59)
[2018-11-03] MEDS: DILTIAZEM HCL 60 MG TABLET PO SCH ×2 (14:59→22:45)
[2018-11-03] MEDS: AMIODARONE HCL 200 MG TABLET PO SCH ×2 (15:00→22:44)
[2018-11-03] MEDS ORDERED: TAMSULOSIN HCL 0.4 MG CAP.SR.24H PO SCH (18:00)
[2018-11-03] MEDS ORDERED: ALPRAZolam 0.5 MG TABLET PO PRN (19:46)
--- NOTE | 2018-11-03 23:11 | HP ---
Chief Complaint - Chief Complaint Date of Service: 11/03/18 Time of Service: 11:00 Chief Complaint: Shortness of breath History of Present Illness: Moe is an 83 yo male with pancreatic cancer and chronic systolic CHF that reports over the last 48 hours increasing shortness of breath and edema. He presented to the [facility] ER with shortness of breath. He denies change in medication or diet, although does admit his activity level has been down. He was recently diagnosed with pancreatic cancer and has not started treatment yet. Medical History (Last Reviewed 11/12/18 @ 09:08 by Kindra Solitario) CHF (congestive heart failure), NYHA class IV (Acute) Acute liver failure BPH (benign prostatic hyperplasia) Pancreatic cancer Surgical History: Surgical History (Last Reviewed 11/12/18 @ 09:08 by Kindra Solitario) H/O transurethral resection of prostate History of transurethral resection of prostate Family History: Family History (Last Reviewed 11/12/18 @ 09:08 by Kindra Solitario) Other Family history non-contributory Social History: Patient Lives/Resources With Spouse Utilized Occupation retired Preferred Language Irish Do you have any holiness or No cultural preference? Smoking Status Former smoker Have you smoked in the past 12 No months Do you dip or chew tobacco No Abuse History No History of abuse Psych History No pertinent hx Alcohol Use none Drug Use none (Last Updated 06/07/18 @ 17:44 by Aidan Urena DO) No Social History Section defined Review Of Systems (GEN) - Review of Systems Generalized/Overall Review: Present: Weakness. Absent: Chills, Fever EENTM: Present: No Symptoms Reported Respiratory: Present: Cough, Shortness of Breath Cardiac: Present: Edema. Absent: Chest Pain, Syncope Abdominal: Absent: Nausea, Vomiting Genitourinary: Present: No Symptoms Reported Musculoskeletal: Present: No Symptoms Reported Neurological: Present: No Symptoms Reported Skin: Present: No Symptoms Reported Endocrine: Present: No Symptoms Reported Immunizations: IMMUNIZATION HX Immunizations Up to Date Yes History of Influenza Vaccine No Hx Pneumococcal Vaccination No Allergies/Adverse Reactions: Allergies Allergy/AdvReac Type Severity Reaction Status Date / Time Penicillins Allergy Verified 10/15/18 22:57 Home Medications: HOME MEDICATIONS Diltiazem HCl [Cardizem] 60 mg PO Q8H #90 tab 10/18/18 [Last Taken Unknown] Rivaroxaban [Xarelto] 20 mg PO DAILY #30 tab 10/18/18 [Last Taken Unknown] Tamsulosin HCl [Flomax] 0.4 mg PO DAILY@1800 #30 cap.sr.24h 10/18/18 [Last Taken Unknown] Furosemide [Lasix] 40 mg PO DAILY PRN #30 tab 11/04/18 [Last Taken Unknown] clonazepam 0.5 mg tablet 0.5 mg PO BID #60 tab 11/07/18 [Last Taken Unknown] amiodarone 200 mg tablet 400 mg PO Q8H #180 tab 11/09/18 [Last Taken Unknown] cetirizine 10 mg capsule 10 mg PO DAILY #30 cap 11/12/18 [Last Taken Unknown] fluticasone 50 mcg/actuation nasal spray,suspension 1 spray NIYAH DAILY #19.8 g 11/12/18 [Last Taken Unknown] Exam - Exam Vital Signs: Vital Signs - Last Taken Temp 36.7 C 11/03/18 18:41 Pulse 76 11/03/18 22:45 Resp 20 11/03/18 18:41 BP 125/57 11/03/18 22:45 Pulse Ox 96 11/03/18 18:41 Constitutional: Present: Alert, Oriented x3, Cooperative ENT Exam: Present: hearing grossly normal Eye Exam: bilateral eye: normal inspection Respiratory: Present: crackles Cardiovascular/Chest: Present: regular rate, rhythm, no murmur Abdomen: Present: Normal bowel sounds, soft, nontender Extremity: Present: lower extremity edema - 2+ Skin Exam: Present: normal color, warm/dry, no cyanosis Diagnostic Studies: Abnormal Lab Results 11/03/18 11/03/18 11/03/18 Range/Units 00:00 00:00 06:10 RBC 4.04 L (4.7-6.0) M/mm3 Hgb 12.4 L (13.5-18.0) gm/dL Hct 37.1 L (42.0-52.0) % RDW 14.9 H (11.5-14.0) % Eosinophils % 5.1 H (0.0-3.0) % Random Glucose 219 H (70-110) mg/dL B-Natriuretic Peptide 2321 H 2210 H (5-650) pg/mL Albumin 3.2 L (3.4-5.0) gm/dl Laboratory Results WBC 8.8 K/mm3 (4.0-10.5) 11/03/18 00:00 RBC 4.04 M/mm3 (4.7-6.0) L 11/03/18 00:00 Hgb 12.4 gm/dL (13.5-18.0) L 11/03/18 00:00 Hct 37.1 % (42.0-52.0) L 11/03/18 00:00 MCV 91.8 fl (78-100) 11/03/18 00:00 MCH 30.7 pg (27-31) 11/03/18 00:00 MCHC 33.4 g/dl (32-36) 11/03/18 00:00 RDW 14.9 % (11.5-14.0) H 11/03/18 00:00 Plt Count 223 K/mm3 (150-450) 11/03/18 00:00 MPV 10.4 fl (8-11.3) 11/03/18 00:00 Immature Gran % (Auto) 0.30 % (0.001-0.429) 11/03/18 00:00 Immature Gran # (Auto) 0.03 K/mm3 (0.000-0.0310) 11/03/18 00:00 Neutrophils % 65.2 % (42-75.0) 11/03/18 00:00 Lymphocytes % 20.2 % (20-51) 11/03/18 00:00 Monocytes % 8.4 % (0.0-9) 11/03/18 00:00 Eosinophils % 5.1 % (0.0-3.0) H 11/03/18 00:00 Basophils % 0.8 % (0.0-1.0) 11/03/18 00:00 Nucleated RBC % 0.0 k/mm3 (0-1) 11/03/18 00:00 Neutrophils # 5.8 K/mm3 (1.3-6.0) 11/03/18 00:00 Lymphocytes # 1.78 k/mm3 (1.5-3.5) 11/03/18 00:00 Monocytes # 0.7 k/mm3 (0.0-1.0) 11/03/18 00:00 Eosinophils # 0.5 k/mm3 (0.0-0.7) 11/03/18 00:00 Absolute Basophils 0.1 k/mm3 (0.0-0.1) 11/03/18 00:00 Sodium 133 mmol/L (132-142) 11/03/18 00:00 Plasma Sodium 135 mmol/L (130-142) 11/03/18 00:00 Potassium 4.3 mmol/L (3.4-4.6) 11/03/18 00:00 Chloride 100 mmol/L (97-106) 11/03/18 00:00 Carbon Dioxide 26.8 mmol/L (24-32.6) 11/03/18 00:00 Anion Gap 10.5 mmol/L (6.8-13.8) 11/03/18 00:00 BUN 19 mg/dL (6-23) 11/03/18 00:00 Creatinine 1.12 mg/dL (0.4-1.4) 11/03/18 00:00 Est GFR (Non-Af Amer) 67 mL/min (60-130) D 11/03/18 00:00 BUN/Creatinine Ratio 17.0 (9.0-21.6) 11/03/18 00:00 Random Glucose 219 mg/dL (70-110) H 11/03/18 00:00 Calcium 9.0 mg/dL (7.9-10.9) 11/03/18 00:00 Calcium Adj for Albumin 9.3 mg/dL (8.4-10.2) 11/03/18 00:00 Total Bilirubin 0.6 mg/dL (0.0-1.1) 11/03/18 00:00 AST 15 U/L (0-48) 11/03/18 00:00 ALT 19 U/L (19-67) 11/03/18 00:00 Alkaline Phosphatase 88 U/L (50-170) 11/03/18 00:00 Troponin I 0.018 ng/mL (0.00-0.10) 11/03/18 06:10 B-Natriuretic Peptide 2210 pg/mL (5-650) H 11/03/18 06:10 Total Protein 6.4 gm/dL (6.2-8.2) 11/03/18 00:00 Albumin 3.2 gm/dl (3.4-5.0) L 11/03/18 00:00 Assessment/Plan - Assessment/Plan (1) Acute on chronic systolic CHF (congestive heart failure) Assessment: Recently identified to have a low EF CHF. He is short of breath and edematous however does not have respiratory failure. Will diuresis with IV lasix and switch to oral and anticipate discharge to home tomorrow if improving and no evidence of respiratory failure. Expect one midnight and will admit to observation. Problem: Acute
[2018-11-04] MEDS ORDERED: FUROSEMIDE 10 MG/ML VIAL IV ONE (06:00)
[2018-11-04] MEDS: AMIODARONE HCL 200 MG TABLET PO SCH (06:28)
[2018-11-04] MEDS: DILTIAZEM HCL 60 MG TABLET PO SCH (06:28)
[2018-11-04 07:00] LABS: Albumin * 3.5 gm/dl (3.4-5.0); Anion Gap 11.1 mmol/L (6.8-13.8); BUN/Creatinine Ratio 15.7 (9.0-21.6); Bilirubin, Total 0.9 mg/dL (0.0-1.1); Ca. Corrected For Albumin 9.3 mg/dL (8.4-10.2); Calcium * 9.2 mg/dL (7.9-10.9); Carbon Dioxide 30.6 mmol/L (24-32.6); Potassium 3.7 mmol/L (3.4-4.6); Total Protein 7.1 gm/dL (6.2-8.2)
[2018-11-04] MEDS: RIVAROXABAN 20 MG TABLET PO SCH (08:06)
--- NOTE | 2018-11-04 10:31 | DS ---
(1) Acute on chronic systolic CHF (congestive heart failure) Problem: Acute (2) Pancreatic cancer Problem: Acute Description of Stay: Moe is an 83 yo male with Chronic Systolic CHF with EF of 31% and pancreatic cancer. He was admitted due to acute on chronic systolic CHF with dyspnea. He was diuresed with lasix 40mg IV periodically and improved. He is feeling well this morning and feels ready for home discharge. Procedures Performed: none Results and Findings: Pending Mircobiology Results 11/03/18 00:35 Blood Blood Culture - Preliminary NO GROWTH 24 HOURS 11/03/18 00:00 Blood Blood Culture - Preliminary NO GROWTH 24 HOURS Lab Pending Results 11/03/18 00:00: WBC 8.8, RBC 4.04 L, Hgb 12.4 L, Hct 37.1 L, MCV 91.8, MCH 30.7, MCHC 33.4, RDW 14.9 H, Plt Count 223, MPV 10.4, Immature Gran % (Auto) 0.30, Immature Gran # (Auto) 0.03, Neutrophils % 65.2, Lymphocytes % 20.2, Monocytes % 8.4, Eosinophils % 5.1 H, Basophils % 0.8, Nucleated RBC % 0.0, Neutrophils # 5.8, Lymphocytes # 1.78, Monocytes # 0.7, Eosinophils # 0.5, Absolute Basophils 0.1 11/03/18 00:00: Sodium 133, Plasma Sodium 135, Potassium 4.3, Chloride 100, Carbon Dioxide 26.8, Anion Gap 10.5, BUN 19, Creatinine 1.12, Est GFR (Non-Af Amer) 67 D, BUN/Creatinine Ratio 17.0, Random Glucose 219 H, Calcium 9.0, Calcium Adj for Albumin 9.3, Total Bilirubin 0.6, AST 15, ALT 19, Alkaline Phosphatase 88, Troponin I Less than 0.017, B-Natriuretic Peptide 2321 H, Total Protein 6.4, Albumin 3.2 L 11/03/18 06:10: Troponin I 0.018, B-Natriuretic Peptide 2210 H 11/04/18 06:35: Sodium 137, Plasma Sodium 138, Potassium 3.7, Chloride 99, Carbon Dioxide 30.6, Anion Gap 11.1, BUN 17, Creatinine 1.08, Est GFR (Non-Af Amer) 70, BUN/Creatinine Ratio 15.7, Random Glucose 168 H, Calcium 9.2, Calcium Adj for Albumin 9.3, Total Bilirubin 0.9, AST 19, ALT 19, Alkaline Phosphatase 101, Total Protein 7.1, Albumin 3.5 Discharge Location: Home Disposition: Home self-care Condition: Fair Discharge Activity: Activity as tolerated Discharge Diet: Low salt Problem Oriented Discharge Instructions to Patient/Family: CHF Patient Instructions Additional Patient Instructions (free text): Keep appointments as scheduled Monitor weight daily. May use lasix once every day as needed if having lower leg swelling, shortness of breath, or an increase in weight. If feeling well without shortness of breath, leg swelling, and if weight is at his baseline he does not need to use lasix. Prescriptions (Any new or edited meds): Furosemide [Lasix] 40 mg PO DAILY PRN #30 tab PRN Reason: edema Complete Home Medications List: Complete Home Medication List: Amiodarone HCl [Cordarone] 400 mg PO Q8H #90 tab 10/18/18 Diltiazem HCl [Cardizem] 60 mg PO Q8H #90 tab 10/18/18 Rivaroxaban [Xarelto] 20 mg PO DAILY #30 tab 10/18/18 Tamsulosin HCl [Flomax] 0.4 mg PO DAILY@1800 #30 cap.sr.24h 10/18/18 Furosemide [Lasix] 40 mg PO DAILY PRN #30 tab 11/04/18
[2018-11-04 11:06] VITALS: BP 130/63
== END 2018-11-04 11:20 | disposition home or self-care (01) ==
LOC: MS 23:35 → ER 23:35 → MS 11-03 02:51
PROVIDERS: ADMIT Family Medicine; ATTEND Family Medicine
CPT/HCPCS: 36415; 71010; 71045; 80053; 83519; 83880; 84484; 85025; 87040; 93005; 94760; 96374; 96375; 99285; G0378

== ENCOUNTER 2018-11-24 17:11 | Observation (INO) ==
[2018-11-24] MEDS ORDERED: NORMAL SALINE 1,000 ML IV ONE (17:20)
--- NOTE | 2018-11-24 17:25 | ERNOTE ---
Medical Problem HPI - Narrative Date of Service: 11/24/18 - General Chief Complaint: General Assessment Time Seen by Provider: 11/24/18 17:19 Source: patient - Immun/Allergies/Home Medications Immunizations: IMMUNIZATION HX Immunizations Up to Date No History of Influenza Vaccine No Hx Pneumococcal Vaccination No Allergies/Adverse Reactions: Allergies Penicillins Allergy (Verified 11/24/18 17:20) Home Medications: HOME MEDICATIONS Tamsulosin HCl [Flomax] 0.4 mg PO DAILY@1800 #30 cap.sr.24h 10/18/18 [Last Taken Unknown] Furosemide [Lasix] 40 mg PO DAILY PRN #30 tab 11/04/18 [Last Taken Unknown] clonazepam 0.5 mg tablet 0.5 mg PO BID #60 tab 11/07/18 [Last Taken Unknown] amiodarone 200 mg tablet 400 mg PO Q8H #180 tab 11/09/18 [Last Taken Unknown] cetirizine 10 mg capsule 10 mg PO DAILY #30 cap 11/12/18 [Last Taken Unknown] fluticasone 50 mcg/actuation nasal spray,suspension 1 spray NIYAH DAILY #19.8 g 11/12/18 [Last Taken Unknown] diltiazem 60 mg tablet 60 mg PO Q8H #90 tab 11/19/18 [Last Taken Unknown] Prochlorperazine Maleate [Compazine] 10 mg PO QID PRN 11/24/18 [Last Taken Unknown] - History of Present History Narrative: This is an 83-year-old male who is going through his first round of chemotherapy 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 Chemo was done on Monday for the first time. He was told he would feel extremely weak and ill afterwards. Patient reports that he felt fine on but yesterday he started to feel general malaise and weakness. Last night he was unable to sleep, finding himself extremely restless. No specific pain or dyspnea was associated with this. Today he is gotten to the point where he feels so weak he cannot even get out of his chair. His is at home but he is a bigger gentleman and she is unable to assist him significantly. He says he has been eating but a little bit less. Urine has been normal. No diarrhea. No vomiting. No chest pain shortness of breath coughing blurred vision bad headache fever or other complaints Review of Systems - Review of Systems Constitutional: Present: malaise, other - The patient does feel thirsty. EYE: Present: no symptoms reported ENT: Present: no symptoms reported Respiratory: Present: no symptoms reported Cardiology: Present: no symptoms reported Gastrointestinal/Abdominal: Present: no symptoms reported Genitourinary: Present: no symptoms reported Musculoskeletal: Present: no symptoms reported Skin: Present: no symptoms reported Neurological: Present: no symptoms reported Endocrine: Present: no symptoms reported Hematologic/Lymphatic: Present: no symptoms reported Psych: Present: no symptoms reported All Other Systems: All systems neg except as marked Medical History (Last Updated 11/24/18 @ 17:42 by Shannan Iniguez RN) CHF (congestive heart failure), NYHA class IV (Acute) FH: chemotherapy Acute liver failure Adenocarcinoma of pancreas Atrial flutter BPH (benign prostatic hyperplasia) Obstructive jaundice Pancreatic cancer Tobacco use since childhood/ most half pack per day Surgical History: Surgical History (Last Reviewed 11/24/18 @ 17:20 by Shannan Iniguez RN) H/O left knee surgery from football injury in his 20's H/O transurethral resection of prostate History of transurethral resection of prostate S/P tonsillectomy Family History: Family History (Last Reviewed 11/24/18 @ 17:20 by Shannan Iniguez RN) Father Heart disease Daughter Multiple myeloma Sister Osteosarcoma pelvic mass Other Family history non-contributory Social History: Preferred Language Turkmen Smoking Status Never smoker Abuse History No History of abuse Psych History No pertinent hx Alcohol Use none Drug Use none (Last Reviewed 11/12/18 @ 09:08 by Kindra Solitario) No Social History Section defined Physical Exam - Physical Exam General Appearance: Present: wd/wn, alert, no apparent distress, other - Laying in bed in no apparent distress Head Exam: Present: normal inspection, no evidence of injury Eye Exam: Normal inspection: bilateral, PERRL: bilateral, EOMI: bilateral Ears, Nose, Throat: Present: normal ENT inspection, normal pharynx, other - Does have some ptosis of the right eye which is chronic per the patient Neck: Present: normal inspection, nontender Respiratory: Present: no respiratory distress, normal breath sounds, chest nontender, lungs clear Cardiovascular/Chest: Present: regular rate, rhythm, no murmur, normal peripheral pulses, other - Right around 100 Gastrointestinal/Abdominal: Present: normal bowel sounds, nontender, nondistended, soft Back Exam: Present: normal inspection, normal range of motion, no vertebral tenderness Extremity Exam: Present: normal inspection, normal range of motion, no edema Neurological Exam: Present: alert, oriented, normal mood/affect, no motor/sensory deficits Skin Exam: Present: normal color, warm/dry Lymphatic Exam: Present: no adenopathy Progress - Results and Orders Patient's Lab Results:: I have reviewed the patient's lab results. - Vital Signs Patient's Vital Signs:: I have reviewed the patient's vital signs. Vital Signs: Vital Signs 11/24/18 17:16 Temperature 36.6 C Pulse Rate 105 H Respiratory Rate 23 H Blood Pressure 131/77 O2 Sat by Pulse Oximetry 98 - EKG EKG #2 EKG: NSR EKG read: Interp. by me EKG Comments: EKG demonstrates significant artifact. Patient has what appears to be a sinus rhythm although it is difficult to interpret due to artifact within the baseline. Could be a flutter with 4-1 block. Ventricular rate is 103. Patient has right axis deviation. Single PVC. Right bundle branch block. Q waves septally. Unchanged from previous. QTc is difficult to interpret due to the wandering baseline. Do not note any ST elevation - X-Ray X-Ray #2 X-Ray: chest Interpretation: Interp. by me X-ray Comments: Chest x-ray shows cardiomegaly and findings consistent with pulmonary fibrosis essentially unchanged from previous chest x-ray dated 10/31. - Progress/Reassessment Chief Complaint: General Assessment Plan - Plan Plan: Patient symptoms are consistent with post chemo weakness and malaise. The progression is also been consistent. No significant abnormalities with the labs, he does have a slightly low sodium. However this gentleman is unable to get up and move around at home. Hydration and observation overnight would be appropriate. I will speak with Dr. Cameron and get him in Departure Clinical Impression: Weakness - Departure Disposition: Still a patient Condition: Good Referrals: Aidan Urena DO [Primary Care Provider] -
[2018-11-24 17:50] LABS: Hematocrit 40.4 % (42.0-52.0); Hemoglobin 13.6 gm/dL (13.5-18.0); Mean Corpuscular Hgb Conc 33.7 g/dl (32-36); Mean Platelet Volume 11.1 fl (8-11.3); Neutrophil # 14.4 K/mm3 (1.3-6.0); Neutrophil % 94.9 % (42-75.0); Platelet Count 201 K/mm3 (150-450); Red Blood Count 4.39 M/mm3 (4.7-6.0); Red Cell Distribution Width 13.6 % (11.5-14.0); White Blood Count 15.2 K/mm3 (4.0-10.5)
[2018-11-24 18:01] LABS: Prothrombin Time (Patient) 11.1 Seconds (9.1-10.7)
[2018-11-24 18:02] LABS: INR 1.13 INR (0.92-1.08)
[2018-11-24 18:10] LABS: Albumin * 3.4 gm/dl (3.4-5.0); Anion Gap 9.1 mmol/L (6.8-13.8); BUN/Creatinine Ratio 22.6 (9.0-21.6); Bilirubin, Total 2.1 mg/dL (0.0-1.1); Ca. Corrected For Albumin 9.4 mg/dL (8.4-10.2); Calcium * 9.2 mg/dL (7.9-10.9); Carbon Dioxide 31.9 mmol/L (24-32.6); Total Protein 7.1 gm/dL (6.2-8.2)
[2018-11-24 18:11] LABS: Troponin I 0.021 ng/mL (0.00-0.10)
[2018-11-24 18:23] LABS: Urine Bilirubin Negative (NEGATIVE); Urine Blood Negative /ul (NEGATIVE); Urine Ketone Negative (NEGATIVE); Urine Nitrite Negative (NEGATIVE); Urine Protein Negative (NEGATIVE); Urine Urobilinogen Normal (NORMAL)
[2018-11-24 18:32] LABS: Urine Appearance Clear (CLEAR); Urine Bacteria None Seen; Urine Color Yellow; Urine RBC None Seen /hpf (0-5); Urine WBC None Seen /hpf (0-5)
[2018-11-24] MEDS: NORMAL SALINE 1,000 ML IV PRN ×2 (20:24→22:37)
[2018-11-24] MEDS ORDERED: TEMAZEPAM 15 MG CAPSULE PO ONE (22:00)
[2018-11-24] MEDS ORDERED: PROCHLORPERAZINE MALEATE 10 MG TABLET PO PRN (22:13)
[2018-11-24] MEDS: clonazePAM 0.5 MG TABLET PO SCH (22:32)
[2018-11-24] MEDS: AMIODARONE HCL 200 MG TABLET PO SCH (22:32)
[2018-11-24] MEDS: DILTIAZEM HCL 60 MG TABLET PO SCH (22:32)
--- NOTE | 2018-11-24 22:47 | HP ---
Chief Complaint - Chief Complaint Date of Service: 11/24/18 Time of Service: 21:00 Chief Complaint: weakness, KILLIAN, Metastatic pacreatic carcinoma, dehydrqation History of Present Illness: Mr. Oakes is an 83 yo wh male with pancreaqtic cancer and is currently undergoing chemotherapy. The last few days he has been becoming progressively weakner and this morning he could not stand or walk. He wqs evaluated in the ER and found to be dehydrated. He has received 2 liters of NS and is already feeling some better. His lab shows some elevation in bilirubin. the WBC is elevated too. Medical History (Last Reviewed 11/24/18 @ 20:48 by Madelyn Romano RN) CHF (congestive heart failure), NYHA class IV (Acute) FH: chemotherapy Acute liver failure Adenocarcinoma of pancreas Atrial flutter BPH (benign prostatic hyperplasia) Obstructive jaundice Pancreatic cancer Tobacco use since childhood/ most half pack per day Surgical History: Surgical History (Last Reviewed 11/24/18 @ 20:48 by Madelyn Romano RN) H/O left knee surgery from football injury in his 20's H/O transurethral resection of prostate History of transurethral resection of prostate S/P tonsillectomy Family History: Family History (Last Reviewed 11/24/18 @ 20:48 by Madelyn Romano RN) Father Heart disease Daughter Multiple myeloma Sister Osteosarcoma pelvic mass Other Family history non-contributory Social History: Patient Lives/Resources With Spouse Utilized Preferred Language Italian Do you have any caodaism or No cultural preference? Smoking Status Former smoker Have you smoked in the past 12 No months Do you dip or chew tobacco No Abuse History No History of abuse Psych History No pertinent hx Alcohol Use none Drug Use none (Last Reviewed 11/12/18 @ 09:08 by Kindra Solitario) No Social History Section defined Review Of Systems (GEN) - Review of Systems Generalized/Overall Review: Present: Weakness, Malaise EENTM: Present: No Symptoms Reported Respiratory: Present: Shortness of Breath Cardiac: Present: No Symptoms Reported Abdominal: Present: Nausea Genitourinary: Present: No Symptoms Reported Musculoskeletal: Present: No Symptoms Reported Neurological: Present: No Symptoms Reported Skin: Present: No Symptoms Reported Endocrine: Present: No Symptoms Reported Immunizations: IMMUNIZATION HX Immunizations Up to Date No History of Influenza Vaccine No Hx Pneumococcal Vaccination No Allergies/Adverse Reactions: Allergies Allergy/AdvReac Type Severity Reaction Status Date / Time Penicillins Allergy Verified 11/24/18 20:48 Home Medications: HOME MEDICATIONS Tamsulosin HCl [Flomax] 0.4 mg PO DAILY@1800 #30 cap.sr.24h 10/18/18 [Last Taken Unknown] Furosemide [Lasix] 40 mg PO DAILY PRN #30 tab 11/04/18 [Last Taken Unknown] clonazepam 0.5 mg tablet 0.5 mg PO BID #60 tab 11/07/18 [Last Taken Unknown] amiodarone 200 mg tablet 400 mg PO Q8H #180 tab 11/09/18 [Last Taken Unknown] cetirizine 10 mg capsule 10 mg PO DAILY #30 cap 11/12/18 [Last Taken Unknown] fluticasone 50 mcg/actuation nasal spray,suspension 1 spray NIYAH DAILY #19.8 g 11/12/18 [Last Taken Unknown] diltiazem 60 mg tablet 60 mg PO Q8H #90 tab 11/19/18 [Last Taken Unknown] Prochlorperazine Maleate [Compazine] 10 mg PO QID PRN 11/24/18 [Last Taken Unknown] Exam - Exam Vital Signs: Vital Signs - Last Taken Temp 37.0 C 11/24/18 19:45 Pulse 107 H 11/24/18 19:45 Resp 18 11/24/18 19:45 BP 119/77 11/24/18 19:45 Pulse Ox 95 11/24/18 19:45 Constitutional: Present: Alert, Oriented x3, Cooperative, Well nourished, Mild distress ENT Exam: Present: normal ENT inspection, hearing grossly normal, pharynx normal Eye Exam: bilateral eye: normal inspection, PERRL, EOMI Neck: Present: non-tender, full range of motion, supple, normal inspection, trachea midline Back Exam: Present: normal inspection, no CVA tenderness, no vertebral tenderness Breasts: Present: Nontender Respiratory: Present: chest non-tender, lungs clear, normal breath sounds, no respiratory distress Cardiovascular/Chest: Present: normal peripheral pulses, regular rate, rhythm, no chest tenderness, no edema, no gallop, no JVD, no murmur, no rub Peripheral Pulses: carotid (R): 2+, carotid (L): 2+, radial (R): 2+, radial (L): 2+ Abdomen: Present: Normal bowel sounds, soft, tender, guarding /Rectal: Present: Exam deferred Extremity: Present: normal range of motion, non-tender, normal inspection, no pedal edema, no calf tenderness Skin Exam: Present: normal color, warm/dry, no cyanosis Lymphatic: Present: no adenopathy Neurologic: Present: steward/stewardess wine II-XII nml as tested, no motor/sensory deficits, alert, normal mood/affect, oriented x 3 Appearance: Present: appropriate appearance, appropriate insight, neat, no memory impairment Eye contact: Present: cooperative, good eye contact, normal speech Thoughts: Present: normal thought pattern, no apparent hallucination Diagnostic Studies: Abnormal Lab Results 11/24/18 11/24/18 11/24/18 Range/Units 17:20 17:20 17:20 WBC 15.2 H (4.0-10.5) K/mm3 RBC 4.39 L (4.7-6.0) M/mm3 Hct 40.4 L (42.0-52.0) % Immature Gran # (Auto) 0.06 H (0.000-0.0310) K/mm3 Neutrophils % 94.9 H (42-75.0) % Lymphocytes % 3.9 L (20-51) % Neutrophils # 14.4 H (1.3-6.0) K/mm3 Lymphocytes # 0.59 L (1.5-3.5) k/mm3 PT 11.1 H (9.1-10.7) Seconds INR (Anticoag Therapy) 1.13 H (0.92-1.08) INR Sodium 131 L (132-142) mmol/L Chloride 94 L (97-106) mmol/L BUN 26 H D (6-23) mg/dL BUN/Creatinine Ratio 22.6 H (9.0-21.6) Random Glucose 311 H (70-110) mg/dL Total Bilirubin 2.1 H (0.0-1.1) mg/dL Urine Glucose (UA) (NEGATIVE) mg/dL 11/24/18 Range/Units 18:14 WBC (4.0-10.5) K/mm3 RBC (4.7-6.0) M/mm3 Hct (42.0-52.0) % Immature Gran # (Auto) (0.000-0.0310) K/mm3 Neutrophils % (42-75.0) % Lymphocytes % (20-51) % Neutrophils # (1.3-6.0) K/mm3 Lymphocytes # (1.5-3.5) k/mm3 PT (9.1-10.7) Seconds INR (Anticoag Therapy) (0.92-1.08) INR Sodium (132-142) mmol/L Chloride (97-106) mmol/L BUN (6-23) mg/dL BUN/Creatinine Ratio (9.0-21.6) Random Glucose (70-110) mg/dL Total Bilirubin (0.0-1.1) mg/dL Urine Glucose (UA) >=1000 H (NEGATIVE) mg/dL Laboratory Results WBC 15.2 K/mm3 (4.0-10.5) H 11/24/18 17:20 RBC 4.39 M/mm3 (4.7-6.0) L 11/24/18 17:20 Hgb 13.6 gm/dL (13.5-18.0) 11/24/18 17:20 Hct 40.4 % (42.0-52.0) L 11/24/18 17:20 MCV 92.0 fl (78-100) 11/24/18 17:20 MCH 31.0 pg (27-31) 11/24/18 17:20 MCHC 33.7 g/dl (32-36) 11/24/18 17:20 RDW 13.6 % (11.5-14.0) 11/24/18 17:20 Plt Count 201 K/mm3 (150-450) 11/24/18 17:20 MPV 11.1 fl (8-11.3) 11/24/18 17:20 Immature Gran % (Auto) 0.40 % (0.001-0.429) 11/24/18 17:20 Immature Gran # (Auto) 0.06 K/mm3 (0.000-0.0310) H 11/24/18 17:20 Neutrophils % 94.9 % (42-75.0) H 11/24/18 17:20 Lymphocytes % 3.9 % (20-51) L 11/24/18 17:20 Monocytes % 0.5 % (0.0-9) 11/24/18 17:20 Eosinophils % 0.1 % (0.0-3.0) 11/24/18 17:20 Basophils % 0.2 % (0.0-1.0) 11/24/18 17:20 Nucleated RBC % 0.0 k/mm3 (0-1) 11/24/18 17:20 Neutrophils # 14.4 K/mm3 (1.3-6.0) H 11/24/18 17:20 Lymphocytes # 0.59 k/mm3 (1.5-3.5) L 11/24/18 17:20 Monocytes # 0.1 k/mm3 (0.0-1.0) 11/24/18 17:20 Eosinophils # 0.0 k/mm3 (0.0-0.7) 11/24/18 17:20 Absolute Basophils 0.0 k/mm3 (0.0-0.1) 11/24/18 17:20 PT 11.1 Seconds (9.1-10.7) H 11/24/18 17:20 INR (Anticoag Therapy) 1.13 INR (0.92-1.08) H 11/24/18 17:20 Sodium 131 mmol/L (132-142) L 11/24/18 17:20 Plasma Sodium 134 mmol/L (130-142) 11/24/18 17:20 Potassium 4.0 mmol/L (3.4-4.6) 11/24/18 17:20 Chloride 94 mmol/L (97-106) L 11/24/18 17:20 Carbon Dioxide 31.9 mmol/L (24-32.6) 11/24/18 17:20 Anion Gap 9.1 mmol/L (6.8-13.8) 11/24/18 17:20 BUN 26 mg/dL (6-23) H D 11/24/18 17:20 Creatinine 1.15 mg/dL (0.4-1.4) 11/24/18 17:20 Est GFR (Non-Af Amer) 65 mL/min (60-130) 11/24/18 17:20 BUN/Creatinine Ratio 22.6 (9.0-21.6) H 11/24/18 17:20 Random Glucose 311 mg/dL (70-110) H 11/24/18 17:20 Lactic Acid, Venous 1.7 mmol/L (0.4-2.0) 11/24/18 17:20 Calcium 9.2 mg/dL (7.9-10.9) 11/24/18 17:20 Calcium Adj for Albumin 9.4 mg/dL (8.4-10.2) 11/24/18 17:20 Total Bilirubin 2.1 mg/dL (0.0-1.1) H 11/24/18 17:20 AST 25 U/L (0-48) 11/24/18 17:20 ALT 39 U/L (19-67) 11/24/18 17:20 Alkaline Phosphatase 109 U/L (50-170) 11/24/18 17:20 Troponin I 0.021 ng/mL (0.00-0.10) 11/24/18 17:20 Total Protein 7.1 gm/dL (6.2-8.2) 11/24/18 17:20 Albumin 3.4 gm/dl (3.4-5.0) 11/24/18 17:20 Urine Color Yellow 11/24/18 18:14 Urine Appearance Clear (CLEAR) 11/24/18 18:14 Urine pH 6.0 pH (5.0-7.0) 11/24/18 18:14 Ur Specific [place] 1.010 SP.GR. (1.005-1.030) 11/24/18 18:14 Urine Protein Negative mg/dL (NEGATIVE) 11/24/18 18:14 Urine Glucose (UA) >=1000 mg/dL (NEGATIVE) H 11/24/18 18:14 Urine Ketones Negative mg/dL (NEGATIVE) 11/24/18 18:14 Urine Blood Negative /ul (NEGATIVE) 11/24/18 18:14 Urine Nitrate Negative (NEGATIVE) 11/24/18 18:14 Urine Bilirubin Negative mg/dl (NEGATIVE) 11/24/18 18:14 Urine Urobilinogen Normal EU/dl (NORMAL) 11/24/18 18:14 Ur Leukocyte Esterase Negative /ul (NEGATIVE) 11/24/18 18:14 Urine RBC None seen /hpf (0-5) 11/24/18 18:14 Urine WBC None seen /hpf (0-5) 11/24/18 18:14 Ur Epithelial Cells 0-5 /hpf (0-5) 11/24/18 18:14 Urine Bacteria None seen (NONE) 11/24/18 18:14 Urine Culture Comments No culture indicated 11/24/18 18:14 Assessment/Plan - Narrative Narrative: Continue with IV [id number] through the night. Repeat lab tomorrow morning begin walking tomorrow morning' contgrol pain and nausea sleeper for tonight. - Assessment/Plan (1) Pancreatic cancer Problem: Acute (2) Weakness Problem: Acute (3) Dehydration Problem: Acute
--- NOTE | 2018-11-24 23:29 | HP ---
Chief Complaint - Chief Complaint Date of Service: 11/24/18 Time of Service: 21:00 Chief Complaint: weakness, KILLIAN, dehydration Medical History (Last Reviewed 11/24/18 @ 20:48 by Madelyn Romano, [email or web address]) CHF (congestive heart failure), NYHA class IV (Acute) FH: chemotherapy Acute liver failure Adenocarcinoma of pancreas Atrial flutter BPH (benign prostatic hyperplasia) Obstructive jaundice Pancreatic cancer Tobacco use since childhood/ most half pack per day Surgical History: Surgical History (Last Reviewed 11/24/18 @ 20:48 by Madelyn Romano, RN) H/O left knee surgery from football injury in his ' H/O transurethral resection of prostate History of transurethral resection of prostate S/P tonsillectomy Family History: Family History (Last Reviewed 11/24/18 @ 20:48 by Madelyn Romano RN) Father Heart disease Daughter Multiple myeloma Sister Osteosarcoma pelvic mass Other Family history non-contributory Social History: Patient Lives/Resources With Spouse Utilized Preferred Language Amharic Do you have any gnosticism or No cultural preference? Smoking Status Former smoker Have you smoked in the past 12 No months Do you dip or chew tobacco No Abuse History No History of abuse Psych History No pertinent hx Alcohol Use none Drug Use none (Last Reviewed 11/12/18 @ 09:08 by Kindra Solitario) No Social History Section defined Immunizations: IMMUNIZATION HX Immunizations Up to Date No History of Influenza Vaccine No Hx Pneumococcal Vaccination No Allergies/Adverse Reactions: Allergies Allergy/AdvReac Type Severity Reaction Status Date / Time Penicillins Allergy Verified 11/24/18 20:48 Home Medications: HOME MEDICATIONS Tamsulosin HCl [Flomax] 0.4 mg PO DAILY@1800 #30 cap.sr.24h 10/18/18 [Last Taken Unknown] Furosemide [Lasix] 40 mg PO DAILY PRN #30 tab 11/04/18 [Last Taken Unknown] clonazepam 0.5 mg tablet 0.5 mg PO BID #60 tab 11/07/18 [Last Taken Unknown] amiodarone 200 mg tablet 400 mg PO Q8H #180 tab 11/09/18 [Last Taken Unknown] cetirizine 10 mg capsule 10 mg PO DAILY #30 cap 11/12/18 [Last Taken Unknown] fluticasone 50 mcg/actuation nasal spray,suspension 1 spray NIYAH DAILY #19.8 g 11/12/18 [Last Taken Unknown] diltiazem 60 mg tablet 60 mg PO Q8H #90 tab 11/19/18 [Last Taken Unknown] Prochlorperazine Maleate [Compazine] 10 mg PO QID PRN 11/24/18 [Last Taken Unknown] Exam - Exam Vital Signs: Vital Signs - Last Taken Temp 37.0 C 11/24/18 19:45 Pulse 107 H 11/24/18 19:45 Resp 18 11/24/18 19:45 BP 119/77 11/24/18 19:45 Pulse Ox 95 11/24/18 19:45 Diagnostic Studies: Abnormal Lab Results 11/24/18 11/24/18 11/24/18 Range/Units 17:20 17:20 17:20 WBC 15.2 H (4.0-10.5) K/mm3 RBC 4.39 L (4.7-6.0) M/mm3 Hct 40.4 L (42.0-52.0) % Immature Gran # (Auto) 0.06 H (0.000-0.0310) K/mm3 Neutrophils % 94.9 H (42-75.0) % Lymphocytes % 3.9 L (20-51) % Neutrophils # 14.4 H (1.3-6.0) K/mm3 Lymphocytes # 0.59 L (1.5-3.5) k/mm3 PT 11.1 H (9.1-10.7) Seconds INR (Anticoag Therapy) 1.13 H (0.92-1.08) INR Sodium 131 L (132-142) mmol/L Chloride 94 L (97-106) mmol/L BUN 26 H D (6-23) mg/dL BUN/Creatinine Ratio 22.6 H (9.0-21.6) Random Glucose 311 H (70-110) mg/dL Total Bilirubin 2.1 H (0.0-1.1) mg/dL Urine Glucose (UA) (NEGATIVE) mg/dL 11/24/18 Range/Units 18:14 WBC (4.0-10.5) K/mm3 RBC (4.7-6.0) M/mm3 Hct (42.0-52.0) % Immature Gran # (Auto) (0.000-0.0310) K/mm3 Neutrophils % (42-75.0) % Lymphocytes % (20-51) % Neutrophils # (1.3-6.0) K/mm3 Lymphocytes # (1.5-3.5) k/mm3 PT (9.1-10.7) Seconds INR (Anticoag Therapy) (0.92-1.08) INR Sodium (132-142) mmol/L Chloride (97-106) mmol/L BUN (6-23) mg/dL BUN/Creatinine Ratio (9.0-21.6) Random Glucose (70-110) mg/dL Total Bilirubin (0.0-1.1) mg/dL Urine Glucose (UA) >=1000 H (NEGATIVE) mg/dL Laboratory Results WBC 15.2 K/mm3 (4.0-10.5) H 11/24/18 17:20 RBC 4.39 M/mm3 (4.7-6.0) L 11/24/18 17:20 Hgb 13.6 gm/dL (13.5-18.0) 11/24/18 17:20 Hct 40.4 % (42.0-52.0) L 11/24/18 17:20 MCV 92.0 fl (78-100) 11/24/18 17:20 MCH 31.0 pg (27-31) 11/24/18 17:20 MCHC 33.7 g/dl (32-36) 11/24/18 17:20 RDW 13.6 % (11.5-14.0) 11/24/18 17:20 Plt Count 201 K/mm3 (150-450) 11/24/18 17:20 MPV 11.1 fl (8-11.3) 11/24/18 17:20 Immature Gran % (Auto) 0.40 % (0.001-0.429) 11/24/18 17:20 Immature Gran # (Auto) 0.06 K/mm3 (0.000-0.0310) H 11/24/18 17:20 Neutrophils % 94.9 % (42-75.0) H 11/24/18 17:20 Lymphocytes % 3.9 % (20-51) L 11/24/18 17:20 Monocytes % 0.5 % (0.0-9) 11/24/18 17:20 Eosinophils % 0.1 % (0.0-3.0) 11/24/18 17:20 Basophils % 0.2 % (0.0-1.0) 11/24/18 17:20 Nucleated RBC % 0.0 k/mm3 (0-1) 11/24/18 17:20 Neutrophils # 14.4 K/mm3 (1.3-6.0) H 11/24/18 17:20 Lymphocytes # 0.59 k/mm3 (1.5-3.5) L 11/24/18 17:20 Monocytes # 0.1 k/mm3 (0.0-1.0) 11/24/18 17:20 Eosinophils # 0.0 k/mm3 (0.0-0.7) 11/24/18 17:20 Absolute Basophils 0.0 k/mm3 (0.0-0.1) 11/24/18 17:20 PT 11.1 Seconds (9.1-10.7) H 11/24/18 17:20 INR (Anticoag Therapy) 1.13 INR (0.92-1.08) H 11/24/18 17:20 Sodium 131 mmol/L (132-142) L 11/24/18 17:20 Plasma Sodium 134 mmol/L (130-142) 11/24/18 17:20 Potassium 4.0 mmol/L (3.4-4.6) 11/24/18 17:20 Chloride 94 mmol/L (97-106) L 11/24/18 17:20 Carbon Dioxide 31.9 mmol/L (24-32.6) 11/24/18 17:20 Anion Gap 9.1 mmol/L (6.8-13.8) 11/24/18 17:20 BUN 26 mg/dL (6-23) H D 11/24/18 17:20 Creatinine 1.15 mg/dL (0.4-1.4) 11/24/18 17:20 Est GFR (Non-Af Amer) 65 mL/min (60-130) 11/24/18 17:20 BUN/Creatinine Ratio 22.6 (9.0-21.6) H 11/24/18 17:20 Random Glucose 311 mg/dL (70-110) H 11/24/18 17:20 Lactic Acid, Venous 1.7 mmol/L (0.4-2.0) 11/24/18 17:20 Calcium 9.2 mg/dL (7.9-10.9) 11/24/18 17:20 Calcium Adj for Albumin 9.4 mg/dL (8.4-10.2) 11/24/18 17:20 Total Bilirubin 2.1 mg/dL (0.0-1.1) H 11/24/18 17:20 AST 25 U/L (0-48) 11/24/18 17:20 ALT 39 U/L (19-67) 11/24/18 17:20 Alkaline Phosphatase 109 U/L (50-170) 11/24/18 17:20 Troponin I 0.021 ng/mL (0.00-0.10) 11/24/18 17:20 Total Protein 7.1 gm/dL (6.2-8.2) 11/24/18 17:20 Albumin 3.4 gm/dl (3.4-5.0) 11/24/18 17:20 Urine Color Yellow 11/24/18 18:14 Urine Appearance Clear (CLEAR) 11/24/18 18:14 Urine pH 6.0 pH (5.0-7.0) 11/24/18 18:14 Ur Specific [place] 1.010 SP.GR. (1.005-1.030) 11/24/18 18:14 Urine Protein Negative mg/dL (NEGATIVE) 11/24/18 18:14 Urine Glucose (UA) >=1000 mg/dL (NEGATIVE) H 11/24/18 18:14 Urine Ketones Negative mg/dL (NEGATIVE) 11/24/18 18:14 Urine Blood Negative /ul (NEGATIVE) 11/24/18 18:14 Urine Nitrate Negative (NEGATIVE) 11/24/18 18:14 Urine Bilirubin Negative mg/dl (NEGATIVE) 11/24/18 18:14 Urine Urobilinogen Normal EU/dl (NORMAL) 11/24/18 18:14 Ur Leukocyte Esterase Negative /ul (NEGATIVE) 11/24/18 18:14 Urine RBC None seen /hpf (0-5) 11/24/18 18:14 Urine WBC None seen /hpf (0-5) 11/24/18 18:14 Ur Epithelial Cells 0-5 /hpf (0-5) 11/24/18 18:14 Urine Bacteria None seen (NONE) 11/24/18 18:14 Urine Culture Comments No culture indicated 11/24/18 18:14
[2018-11-25] MEDS: AMIODARONE HCL 200 MG TABLET PO SCH ×3 (06:36→21:50)
[2018-11-25] MEDS: DILTIAZEM HCL 60 MG TABLET PO SCH ×3 (06:36→21:46)
[2018-11-25] MEDS: FLUTICASONE PROPIONATE 120 SPRAY INHALER NS SCH (08:40)
[2018-11-25] MEDS: LORATADINE 10 MG TABLET PO SCH (08:40)
[2018-11-25] MEDS: clonazePAM 0.5 MG TABLET PO SCH ×2 (08:40→21:00)
[2018-11-25] MEDS ORDERED: FLUTICASONE PROPIONATE 120 SPRAY INHALER NS SCH (09:00)
[2018-11-25] MEDS: NORMAL SALINE 1,000 ML IV PRN ×2 (10:48→22:55)
--- NOTE | 2018-11-25 11:32 | PN ---
Subjective - Date and Time Seen Date: 11/25/18 Time: 10:15 Subjective Narrative: Moe Oakes is an 83-year-old male admitted through ER with profound weakness. He was recently diagnosed with pancreatic carcinoma. It is thought to be metastatic. His cancer cell count is high at around 900. The tumor in the head of the pancreas appears to be small. He was started on chemotherapy recently has had 2 episodes of chemotherapy. After the last dose of chemotherapy however he became profoundly weak and and he was unable to get out of his chair at home. His is unable to assist him. His son-in-law is a great help and lives just 2 or 3 blocks away and helps him a lot. They believe if he can get a lift chair that he can stand with his walker but he was set total 2 person assist transferring from bed to chair this morning. He is not able to support his weight and is not ambulatory at this point. They are unable to take him home because of his profound weakness at this point. He is an observation stay patient but I can't send him home today has risen awaiting a durable medical for him today. I also discussed pancreatic cancer in general and how poorly responsive it is too chemotherapy and radiation therapy as. 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 He is not a surgical candidate for a Whipple's due to his advanced age and weakness. Oncology and recommended chemotherapy to be followed by radiation therapy. I have suggested they start getting educated about hospice have arranged for consultation for tomorrow morning to get questions answered. They will have a discussion with her oncol ogist on Monday and he is scheduled for another chemotherapy treatment on that day but they're unsure as to whether they will do it now or not because of his profound weakness. There is a lot of family they can assist in the home and so he may require some time in rehabilitation to try to get stronger. They have difficult decisions to make this week. Objective - Review of Systems Generalized/Overall Review: Reports: Weakness, Fatigue EENTM: Reports: No Symptoms Reported Respiratory: Reports: No Symptoms Reported Cardiac: Reports: No Symptoms Reported Abdominal: Reports: No Symptoms Reported Genitourinary Symptoms: Reports: No Symptoms Reported Musculoskeletal Complaints: Reports: No Symptoms Reported Neurological: Reports: Weakness Endocrine: Reports: No Symptoms Reported Misc: All systems neg except as marked - Vitals Vitals: Last Vital Signs Temp 36.8 C 11/25/18 10:00 Pulse 100 11/25/18 10:00 Resp 18 11/25/18 10:00 BP 130/86 11/25/18 10:00 Pulse Ox 95 11/25/18 10:00 - Abnormal Lab Findings Abnormal Lab Findings: Abnormal Lab Results 11/24/18 11/24/18 11/24/18 Range/Units 17:20 17:20 17:20 WBC 15.2 H (4.0-10.5) K/mm3 RBC 4.39 L (4.7-6.0) M/mm3 Hct 40.4 L (42.0-52.0) % Immature Gran # (Auto) 0.06 H (0.000-0.0310) K/mm3 Neutrophils % 94.9 H (42-75.0) % Lymphocytes % 3.9 L (20-51) % Neutrophils # 14.4 H (1.3-6.0) K/mm3 Lymphocytes # 0.59 L (1.5-3.5) k/mm3 PT 11.1 H (9.1-10.7) Seconds INR (Anticoag Therapy) 1.13 H (0.92-1.08) INR Sodium 131 L (132-142) mmol/L Chloride 94 L (97-106) mmol/L BUN 26 H D (6-23) mg/dL BUN/Creatinine Ratio 22.6 H (9.0-21.6) Random Glucose 311 H (70-110) mg/dL Total Bilirubin 2.1 H (0.0-1.1) mg/dL Urine Glucose (UA) (NEGATIVE) mg/dL 11/24/18 Range/Units 18:14 WBC (4.0-10.5) K/mm3 RBC (4.7-6.0) M/mm3 Hct (42.0-52.0) % Immature Gran # (Auto) (0.000-0.0310) K/mm3 Neutrophils % (42-75.0) % Lymphocytes % (20-51) % Neutrophils # (1.3-6.0) K/mm3 Lymphocytes # (1.5-3.5) k/mm3 PT (9.1-10.7) Seconds INR (Anticoag Therapy) (0.92-1.08) INR Sodium (132-142) mmol/L Chloride (97-106) mmol/L BUN (6-23) mg/dL BUN/Creatinine Ratio (9.0-21.6) Random Glucose (70-110) mg/dL Total Bilirubin (0.0-1.1) mg/dL Urine Glucose (UA) >=1000 H (NEGATIVE) mg/dL - EKG/Xray Findings EKG: NSR, rhythm - Exam Constitutional: Present: Somnolent ENT Exam: Present: hard of hearing Neck: Present: non-tender, limited range of motion Breasts: Present: Nontender Respiratory: Present: chest non-tender, lungs clear, normal breath sounds, no respiratory distress, no accessory muscle use Cardiovascular/Chest: Present: normal peripheral pulses, regular rate, rhythm, no chest tenderness, no edema, no gallop, no JVD, no murmur, no rub Abdomen: Present: Normal bowel sounds, soft, nontender, nondistended, no rebound tenderness, no hepatospenomegaly, no masses /Rectal: Present: Exam deferred Extremity: Present: normal range of motion, non-tender, normal inspection, no pedal edema, no calf tenderness Skin Exam: Present: normal color, warm/dry, no cyanosis Lymphatic: Present: no adenopathy Neurologic: 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: 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 II-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
[2018-11-25] MEDS: TAMSULOSIN HCL 0.4 MG CAP.SR.24H PO SCH (17:34)
[2018-11-25] MEDS ORDERED: BISACODYL 5 MG TABLET.DR ONE (20:49)
[2018-11-25] MEDS ORDERED: diphenhydrAMINE HCL 25 MG CAPSULE ONE (20:49)
[2018-11-25] MEDS: NYSTATIN 30 APPL TUBE TP SCH (21:00)
[2018-11-25] MEDS ORDERED: BISACODYL 5 MG TABLET.DR PO ONE (21:00)
[2018-11-25] MEDS: diphenhydrAMINE HCL 25 MG CAPSULE PO SCH (21:45)
[2018-11-26] MEDS: ACETAMINOPHEN 325 MG TABLET PO PRN ×2 (02:08→23:29)
[2018-11-26 05:45] LABS: Hemoglobin 11.6 gm/dL (13.5-18.0); Mean Cell Volume 91.9 fl (78-100); Mean Corpuscular Hemoglobin 30.4 pg (27-31); Mean Corpuscular Hgb Conc 33.1 g/dl (32-36); Mean Platelet Volume 10.7 fl (8-11.3); Neutrophil # 10.2 K/mm3 (1.3-6.0); Neutrophil % 88.1 % (42-75.0); Platelet Count 171 K/mm3 (150-450); Red Blood Count 3.81 M/mm3 (4.7-6.0); Red Cell Distribution Width 13.8 % (11.5-14.0); White Blood Count 11.5 K/mm3 (4.0-10.5)
[2018-11-26 05:58] LABS: Albumin * 2.6 gm/dl (3.4-5.0); Anion Gap 11.7 mmol/L (6.8-13.8); BUN/Creatinine Ratio 18.6 (9.0-21.6); Bilirubin, Total 1.7 mg/dL (0.0-1.1); Ca. Corrected For Albumin 9.4 mg/dL (8.4-10.2); Calcium * 8.6 mg/dL (7.9-10.9); Carbon Dioxide 27.6 mmol/L (24-32.6); Potassium 3.3 mmol/L (3.4-4.6); Total Protein 6.2 gm/dL (6.2-8.2)
[2018-11-26] MEDS: AMIODARONE HCL 200 MG TABLET PO SCH ×3 (06:57→21:44)
[2018-11-26] MEDS: DILTIAZEM HCL 60 MG TABLET PO SCH ×3 (06:57→21:43)
[2018-11-26] MEDS: clonazePAM 0.5 MG TABLET PO SCH ×2 (09:39→20:21)
[2018-11-26] MEDS: NYSTATIN 30 APPL TUBE TP SCH ×2 (09:39→20:21)
[2018-11-26] MEDS: LORATADINE 10 MG TABLET PO SCH (09:39)
[2018-11-26] MEDS: FLUTICASONE PROPIONATE 120 SPRAY INHALER NS SCH (09:39)
[2018-11-26] MEDS ORDERED: FUROSEMIDE 10 MG/ML VIAL IV ONE (12:02)
--- NOTE | 2018-11-26 17:49 | PN ---
Subjective - Date and Time Seen Date: 11/26/18 Time: 17:49 Subjective Narrative: Patient and family state that he had a fairly good night, states he is feeling better today than he has in a while. Lasix was given which helped him breathe a little easier after the diuretic. His vital signs been stable overnight, has been afebrile, his blood pressure remains in a good range. His heart rate has been well controlled. He is satting well on room air. Family considering hospice care. They decided no more chemo treatments as they do not likely makes him feel and they understand that he likely will not get much benefit from continuing them. Patient still can considerably weak, physical therapy was by today to evaluate him. Objective - Review of Systems Generalized/Overall Review: Reports: Weakness. Denies: Chills, Fever EENTM: Reports: No Symptoms Reported Respiratory: Denies: Cough, Shortness of Breath Cardiac: Reports: Edema. Denies: Chest Pain Abdominal: Denies: Nausea, Vomiting Genitourinary Symptoms: Reports: No Symptoms Reported Musculoskeletal Complaints: Reports: No Symptoms Reported Neurological: Reports: Weakness Skin: Reports: No Symptoms Reported - Vitals Vitals: Last Vital Signs Temp 36.4 C 11/26/18 14:49 Pulse 104 H 11/26/18 14:51 Resp 20 11/26/18 14:49 BP 135/76 11/26/18 14:51 Pulse Ox 99 11/26/18 14:49 - Abnormal Lab Findings Abnormal Lab Findings: Abnormal Lab Results 11/26/18 11/26/18 Range/Units 05:00 06:00 WBC 11.5 H D (4.0-10.5) K/mm3 RBC 3.81 L (4.7-6.0) M/mm3 Hgb 11.6 L (13.5-18.0) gm/dL Hct 35.0 L (42.0-52.0) % Immature Gran % (Auto) 1.40 H (0.001-0.429) % Immature Gran # (Auto) 0.16 H (0.000-0.0310) K/mm3 Neutrophils % 88.1 H (42-75.0) % Lymphocytes % 7.3 L (20-51) % Neutrophils # 10.2 H (1.3-6.0) K/mm3 Lymphocytes # 0.84 L (1.5-3.5) k/mm3 Potassium 3.3 L (3.4-4.6) mmol/L Chloride 96 L (97-106) mmol/L Random Glucose 248 H (70-110) mg/dL Total Bilirubin 1.7 H (0.0-1.1) mg/dL Albumin 2.6 L (3.4-5.0) gm/dl - Exam Constitutional: Present: Alert, Oriented x3, Somnolent ENT Exam: Present: hard of hearing Respiratory: Present: lungs clear, normal breath sounds, no respiratory distress Cardiovascular/Chest: Present: no murmur, irregularly irregular, edema Abdomen: Present: Normal bowel sounds, soft, nontender /Rectal: Present: Exam deferred Skin Exam: Present: normal color, warm/dry Neurologic: Present: no motor/sensory deficits, alert, oriented x 3 Appearance: Present: appropriate appearance, appropriate insight Eye contact: Present: cooperative, good eye contact Thoughts: Present: normal thought pattern, normal mood /affect Assessment/Plan Plan Narrative: Patient likely go home tomorrow with hospice care as patient no longer wants to continue with his cancer treatment. We will continue comfort measures at this time. Vital signs are stable, patient is comfortable. We will continue to mon itor I's and O's, use Lasix as needed for diuresis. Will also continue to bladder scan throughout the day to make sure he is not retaining urine. We will straight cath patient as needed if greater than 250 cc of urine retained after void. Patient's family is in agreement with the current treatment plan, they will have the nurse call with any questions or concerns. - Problems/Diagnosis (1) Pancreatic cancer Problem: Acute Qualifiers: Pancreatic malignancy location: head of pancreas Qualified Code(s): C25.0 - Malignant neoplasm of head of pancreas (2) Weakness Problem: Acute (3) CHF (congestive heart failure), NYHA class IV Problem: Acute Qualifiers: Congestive heart failure type: systolic Congestive heart failure chronicity: acute on chronic Qualified Code(s): I50.23 - Acute on chronic systolic (congestive) heart failure
[2018-11-26] MEDS: TAMSULOSIN HCL 0.4 MG CAP.SR.24H PO SCH (17:51)
[2018-11-26] MEDS: diphenhydrAMINE HCL 25 MG CAPSULE PO SCH (20:18)
[2018-11-27 05:58] LABS: Anion Gap 8.7 mmol/L (6.8-13.8); BUN/Creatinine Ratio 16.3 (9.0-21.6); Calcium * 8.5 mg/dL (7.9-10.9); Carbon Dioxide 28.7 mmol/L (24-32.6); Potassium 3.4 mmol/L (3.4-4.6)
[2018-11-27] MEDS: DILTIAZEM HCL 60 MG TABLET PO SCH ×2 (06:03→14:27)
[2018-11-27] MEDS: AMIODARONE HCL 200 MG TABLET PO SCH ×2 (06:04→14:27)
[2018-11-27] MEDS: clonazePAM 0.5 MG TABLET PO SCH (08:27)
[2018-11-27] MEDS: FLUTICASONE PROPIONATE 120 SPRAY INHALER NS SCH (08:28)
[2018-11-27] MEDS: LORATADINE 10 MG TABLET PO SCH (08:28)
[2018-11-27] MEDS: NYSTATIN 30 APPL TUBE TP SCH (08:28)
[2018-11-27] MEDS ORDERED: FUROSEMIDE 10 MG/ML VIAL IV SCH (09:00)
--- NOTE | 2018-11-27 12:43 | DS ---
(1) Pancreatic cancer Problem: Acute Qualifiers: Pancreatic malignancy location: head of pancreas Qualified Code(s): C25.0 - Malignant neoplasm of head of pancreas (2) Weakness Problem: Acute (3) CHF (congestive heart failure), NYHA class IV Problem: Acute Qualifiers: Congestive heart failure type: systolic Congestive heart failure chronicity: acute on chronic Qualified Code(s): I50.23 - Acute on chronic systolic (congestive) heart failure Description of Stay: Ms. Oakes is an 83-year-old male with history of pancreatic cancer who presented to the ER following 2 doses of chemotherapy which resulted in severe weakness, dehydration, inability to care for himself. While here it was determined that he would no longer pursue treatment for his pancreatic cancer would like to go on home health care with physical therapy, bathing assistance, and nursing assistance. He will go home with a rich catheter in place which will be in a changed every 10 days by home health. His plans are to go on home hospice likely in the near future but him and his family wanted a little more time to make this decision. While here his vital signs been stable and he has improved in his strength with the help of physical therapy who came and worked with him during his stay here. No changes made to his medications. He will go home on a regular diet. Mr. Oakes is confined to home due to severe deconditioning following chemotherapy for pancreatic cancer. He has a need for alf as patient will have difficulty with medication administration, Rich catheter care, and vital sign monitoring as well as weight management from his CHF. Patient will need physical therapy due to severe deconditioning from weakness following his chemotherapy which resulted in the patient also needing bathing assistance as he is not strong enough to take care of some of himself and france little is his . The need for home health care skilled services is directly related to the time spent [id number] with the patient. [facility] will transport him home and help to make sure he arrives safely and is able to get inside without any incidents. Procedures Performed: none Results and Findings: Pending Mircobiology Results 11/24/18 17:54 Blood Blood Culture - Preliminary NO GROWTH AFTER 48 HOURS 11/24/18 17:20 Blood Blood Culture - Preliminary NO GROWTH AFTER 48 HOURS Lab Pending Results 11/24/18 17:20: WBC 15.2 H, RBC 4.39 L, Hgb 13.6, Hct 40.4 L, MCV 92.0, MCH 31.0, MCHC 33.7, RDW 13.6, Plt Count 201, MPV 11.1, Immature Gran % (Auto) 0.40, Immature Gran # (Auto) 0.06 H, Neutrophils % 94.9 H, Lymphocytes % 3.9 L, Monocytes % 0.5, Eosinophils % 0.1, Basophils % 0.2, Nucleated RBC % 0.0, Neutrophils # 14.4 H, Lymphocytes # 0.59 L, Monocytes # 0.1, Eosinophils # 0.0, Absolute Basophils 0.0 11/24/18 17:20: PT 11.1 H, INR (Anticoag Therapy) 1.13 H 11/24/18 17:20: Sodium 131 L, Plasma Sodium 134, Potassium 4.0, Chloride 94 L, Carbon Dioxide 31.9, Anion Gap 9.1, BUN 26 H D, Creatinine 1.15, Est GFR (Non-Af Amer) 65, BUN/Creatinine Ratio 22.6 H, Random Glucose 311 H, Calcium 9.2, Calcium Adj for Albumin 9.4, Total Bilirubin 2.1 H, AST 25, ALT 39, Alkaline Phosphatase 109, Troponin I 0.021, Total Protein 7.1, Albumin 3.4 11/24/18 17:20: Lactic Acid, Venous 1.7 11/24/18 18:14: Urine Color Yellow, Urine Appearance Clear, Urine pH 6.0, Ur Specific [place] 1.010, Urine Protein Negative, Urine Glucose (UA) >=1000 H, Urine Ketones Negative, Urine Blood Negative, Urine Nitrate Negative, Urine Bilirubin Negative, Urine Urobilinogen Normal, Ur Leukocyte Esterase Negative, Urine RBC None seen, Urine WBC None seen, Ur Epithelial Cells 0-5, Urine Bacteria None seen, Urine Culture Comments No culture indicated 11/26/18 05:00: WBC 11.5 H D, RBC 3.81 L, Hgb 11.6 L, Hct 35.0 L, MCV 91.9, MCH 30.4, MCHC 33.1, RDW 13.8, Plt Count 171, MPV 10.7, Immature Gran % (Auto) 1.40 H, Immature Gran # (Auto) 0.16 H, Neutrophils % 88.1 H, Lymphocytes % 7.3 L, Monocytes % 1.9, Eosinophils % 1.0, Basophils % 0.3, Nucleated RBC % 0.0, Neutrophils # 10.2 H, Lymphocytes # 0.84 L, Monocytes # 0.2, Eosinophils # 0.1, Absolute Basophils 0.0 11/26/18 06:00: Sodium 132, Plasma Sodium 134, Potassium 3.3 L, Chloride 96 L, Carbon Dioxide 27.6, Anion Gap 11.7, BUN 18, Creatinine 0.97, Est GFR (Non-Af Amer) 79 D, BUN/Creatinine Ratio 18.6, Random Glucose 248 H, Calcium 8.6, Calcium Adj for Albumin 9.4, Total Bilirubin 1.7 H, AST 18, ALT 29, Alkaline Phosphatase 87, Total Protein 6.2, Albumin 2.6 L 11/27/18 05:32: Sodium 130 L, Plasma Sodium 133, Potassium 3.4, Chloride 96 L, Carbon Dioxide 28.7, Anion Gap 8.7, BUN 17, Creatinine 1.04, Est GFR (Non-Af Amer) 73, BUN/Creatinine Ratio 16.3, Random Glucose 287 H, Calcium 8.5 Discharge Location: Home Disposition: Home Health Service [place] Agency: [facility] Home Health Condition: Serious Face to Face Encounter completed per [facility] Guidelines: Yes Discharge Activity: Activity as tolerated Discharge Diet: General/regular food Referrals: Aidan Urena DO [Primary Care Provider] - One Week () Problem Oriented Discharge Instructions to Patient/Family: Rich Catheter Care, Adult, Weakness, [id number], Acute Urinary Retention, Male, [id number], Dehydration, Elderly, [id number] Additional Patient Instructions (free text): -Please make TCM appointment unless [facility] discharge. Thank you! Macie @ [phone]. Follow up with on 12-05-18 at 2:15pm. Home health to change catheter every 10 days while inserted. Complete Home Medications List: Complete Home Medication List: Tamsulosin HCl [Flomax] 0.4 mg PO DAILY@1800 #30 cap.sr.24h 10/18/18 Furosemide [Lasix] 40 mg PO DAILY PRN #30 tab 11/04/18 clonazepam 0.5 mg tablet 0.5 mg PO BID #60 tab 11/07/18 amiodarone 200 mg tablet 400 mg PO Q8H #180 tab 11/09/18 cetirizine 10 mg capsule 10 mg PO DAILY #30 cap 11/12/18 fluticasone 50 mcg/actuation nasal spray,suspension 1 spray NIYAH DAILY #19.8 g 11/12/18 diltiazem 60 mg tablet 60 mg PO Q8H #90 tab 11/19/18 Prochlorperazine Maleate [Compazine] 10 mg PO QID PRN 11/24/18
[2018-11-27 15:40] VITALS: BP 125/64
== END 2018-11-27 16:00 | disposition home health service (06) ==
LOC: ER 17:11 → MS 17:11
PROVIDERS: ADMIT Family Medicine; ATTEND Family Medicine
CPT/HCPCS: 36415; 71010; 71045; 80048; 80053; 81001; 83605; 84484; 85025; 85610; 87040; 93005; 94762; 96361; 96374; 96375; 97110; 97116; 97161; 97530; 99285; G0378

== ENCOUNTER 2018-12-26 02:58 | Observation (INO) ==
--- NOTE | 2018-12-26 03:17 | ERNOTE ---
Medical Problem HPI - General Chief Complaint: Fall Time Seen by Provider: 12/26/18 03:13 Source: patient, family Exam Limitations: no limitations - Immun/Allergies/Home Medications Immunizations: IMMUNIZATION HX Immunizations Up to Date Yes History of Influenza Vaccine Yes Hx Pneumococcal Vaccination No Allergies/Adverse Reactions: Allergies Penicillins Allergy (Severe, Verified 12/26/18 07:26) Hives, throat swelling Home Medications: HOME MEDICATIONS Tamsulosin HCl [Flomax] 0.4 mg PO DAILY@1800 #30 cap.sr.24h 10/18/18 [Last Taken Unknown] Prochlorperazine Maleate [Compazine] 10 mg PO PRN PRN 11/24/18 [Last Taken Unknown] Cetirizine HCl [Wal-Zyr] 10 mg PO DAILY PRN 12/26/18 [Last Taken Unknown] Fluticasone Propionate [Flonase Allergy Relief] 1 spray INTRANASAL DAILY PRN 12/26/18 [Last Taken Unknown] Furosemide [Lasix] 40 mg PO QAM PRN 12/26/18 [Last Taken Unknown] Ondansetron [Zofran Odt] 4 mg PO Q8H PRN 12/26/18 [Last Taken Unknown] Sennosides [Senna Lax] 8.6 mg PO BID PRN 12/26/18 [Last Taken Unknown] LORazepam [Ativan] 0.5 mg PO TID #120 tab 12/27/18 [Last Taken Unknown] Morphine Sulfate [Morphine Sulfate Conc. Oral Solution] 5 mg PO Q2H #30 ml 12/28/18 [Last Taken Unknown] morphine concentrate 20 mg/mL oral syringe (FOR ORAL USE ONLY) 5 mg PO Q2H PRN #100 syringe 12/28/18 [Last Taken Unknown] - History of Present History Narrative: Pt is undergoing chemo treatment for his pancreatic cancer and had a treatment 2 days ago. Today he was feeling a little weak but this morning he became very weak and could not even walk. He had EMS come help him up once tonight but refused transport. He then fell again and EMS brought him to the ED. Timing: getting worse Severity: moderate Review of Systems - Review of Systems Constitutional: Present: weakness, fatigue, malaise. Absent: recent illness, fever, chills EYE: Absent: vision changes ENT: Absent: nasal drainage Respiratory: Absent: shortness of breath, cough Cardiology: Absent: chest pain Medical History (Updated 12/04/18 @ 01:12 by Albaro Olea DO) CHF (congestive heart failure), NYHA class IV (Acute) Acute liver failure Adenocarcinoma of pancreas Atrial flutter BPH (benign prostatic hyperplasia) FH: chemotherapy Obstructive jaundice Pancreatic cancer Tobacco use since childhood/ most half pack per day Surgical History: Surgical History (Updated 11/27/18 @ 15:21 by Aidan Urena DO) H/O left knee surgery from football injury in his 20's H/O transurethral resection of prostate History of transurethral resection of prostate S/P tonsillectomy Family History: Family History (Updated 11/22/18 @ 16:03 by aN Renae RN) Father Heart disease Daughter Multiple myeloma Sister Osteosarcoma pelvic mass Other Family history non-contributory Social History: Preferred Language Moh[place] Smoking Status Former smoker Abuse History No History of abuse Psych History No pertinent hx (Last Updated 11/29/18 @ 15:00 by Aidan Urena DO) No Social History Section defined Physical Exam - Physical Exam General Appearance: Present: wd/wn, alert, mild distress Head Exam: Present: normal inspection, no evidence of injury Eye Exam: Normal inspection: bilateral, PERRL: bilateral Ears, Nose, Throat: Present: normal ENT inspection Neck: Present: normal inspection, nontender, supple Respiratory: Present: no respiratory distress, no accessory muscle use, chest nontender, lungs clear Cardiovascular/Chest: Present: regular rate, rhythm, extra beats Gastrointestinal/Abdominal: Present: normal bowel sounds, nontender, nondistended Progress - Results and Orders Patient's Lab Results:: I have reviewed the patient's lab results. Results and Orders: Laboratory Tests 12/26/18 12/26/18 12/26/18 03:35 03:35 04:18 WBC 15.6 H Hgb 11.9 L Hct 34.9 L Neutrophils % 92.6 H Lymphocytes % 3.2 L Sodium 133 Potassium 3.5 Chloride 96 L BUN 22 Creatinine 1.05 Random Glucose 199 H Calcium 8.6 Total Bilirubin 1.8 H AST 20 ALT 35 Alkaline Phosphatase 86 Total Protein 6.2 Albumin 2.6 L Urine Color Dark yellow Urine Appearance Cloudy Urine Protein 100 H Urine Glucose (UA) 100 H Urine Ketones 5 Urine Blood Negative Urine Nitrate Negative Ur Leukocyte Esterase Negative Urine Culture Comments Culture to follow - Vital Signs Patient's Vital Signs:: I have reviewed the patient's vital signs. - X-Ray X-Ray #1 X-Ray: chest Interpretation: Reviewed by me X-ray Comments: MPRESSION: NO ACUTE CARDIOPULMONARY ABNORMALITY IDENTIFIED. Electronically signed by Jayson May D.O. - Progress/Reassessment Progress:: Improved Progress Note-Subjective: 12/26/18 06:[address] Urena and he said that the patient and family need to make a decision. If they are willing to accept help he can be admitted and possibly going to a detention and strengthen there after admission. If they are going to continue to not accept help they can follow up in the office in a couple of days. I spoke with the family and they agree that it is time he got more help and is willing to be admitted and work toward detention placement as he improves. Departure Clinical Impression: Weakness generalized, Declining performance status Fall Qualifiers: Encounter type: initial encounter Qualified Code(s): W19.XXXA - Unspecified fall, initial encounter Pancreatic cancer Qualifiers: Pancreatic malignancy location: unspecified Qualified Code(s): C25.9 - Malignant neoplasm of pancreas, unspecified - Departure Disposition: Short Term Hospital Inpatient Condition: Serious
[2018-12-26 03:39] LABS: Hematocrit 34.9 % (42.0-52.0); Hemoglobin 11.9 gm/dL (13.5-18.0); Mean Cell Volume 91.1 fl (78-100); Mean Corpuscular Hemoglobin 31.1 pg (27-31); Mean Corpuscular Hgb Conc 34.1 g/dl (32-36); Mean Platelet Volume 10.5 fl (8-11.3); Neutrophil # 14.4 K/mm3 (1.3-6.0); Neutrophil % 92.6 % (42-75.0); Platelet Count 156 K/mm3 (150-450); Red Blood Count 3.83 M/mm3 (4.7-6.0); Red Cell Distribution Width 14.4 % (11.5-14.0); White Blood Count 15.6 K/mm3 (4.0-10.5)
[2018-12-26 03:52] LABS: Albumin * 2.6 gm/dl (3.4-5.0); Anion Gap 10.3 mmol/L (6.8-13.8); Bilirubin, Total 1.8 mg/dL (0.0-1.1); Ca. Corrected For Albumin 9.4 mg/dL (8.4-10.2); Calcium * 8.6 mg/dL (7.9-10.9); Carbon Dioxide 30.2 mmol/L (24-32.6); Potassium 3.5 mmol/L (3.4-4.6); Total Protein 6.2 gm/dL (6.2-8.2)
[2018-12-26 04:28] LABS: Urine Bilirubin Negative (NEGATIVE); Urine Blood Negative /ul (NEGATIVE); Urine Ketone 5 mg/dL (NEGATIVE); Urine Nitrite Negative (NEGATIVE); Urine Protein 100 mg/dL (NEGATIVE); Urine Specific Gravity 1.025 SP.GR. (1.005-1.030); Urine Urobilinogen Normal (NORMAL)
[2018-12-26 04:29] LABS: Urine Amorphous Sediment Few - 1+ (NONE-FEW); Urine Appearance Cloudy (CLEAR); Urine Bacteria 1+; Urine Color Dark Yellow; Urine RBC None Seen /hpf (0-5); Urine WBC 0-5 /hpf (0-5)
[2018-12-26] MEDS ORDERED: NORMAL SALINE 1,000 ML IV ONE (05:04)
[2018-12-26] MEDS ORDERED: ONDANSETRON HCL/PF 2 MG/ML VIAL IV ONE (05:37)
--- NOTE | 2018-12-26 10:34 | HP ---
Chief Complaint - Chief Complaint Date of Service: 12/26/18 Time of Service: 10:34 Chief Complaint: Weakness History of Present Illness: Mr. Lovell is an 83-year-old male with a history of advanced pancreatic cancer who up to today was currently undergoing chemotherapy for treatment. Patient had previously decided to forego treatment but over the course of the last month or so changed his mind and went back for a second round . Patient completed chemotherapy on Monday (roughly 4 days ago) and has progressively developed fatigue, weakness, and the inability to care for himself. Patient had similar issues following the first round of chemotherapy, he was brought into the ER by his at that time as well. Following the first round of chemotherapy the patient and his had decided to forego treatment as they did not think they could physically continue to do it and had originally planned to go home with home health in preparation to starting hospice. The ER physician who admitted the patient to my services I discussed the patient going to an assisted living facility which the family agreed upon after he had been evaluated by PT and OT here. Aside from a slightly elevated white blood cell count of 15.6, the rest of his lab work was fairly unremarkable. His chest x-ray showed no acute cardiopulmonary processes. Patient is arousable with sternal rub but otherwise somnolent. He has no concerns or discomfort at this time, just physcially exhausted. Medical History (Updated 12/26/18 @ 10:34 by Aidan Urena DO) CHF (congestive heart failure), NYHA class IV (Acute) Acute liver failure Adenocarcinoma of pancreas Atrial flutter BPH (benign prostatic hyperplasia) FH: chemotherapy Obstructive jaundice Pancreatic cancer Tobacco use since childhood/ most half pack per day Surgical History: Surgical History (Updated 11/27/18 @ 15:21 by Aidan Urena DO) H/O left knee surgery from football injury in his 20's H/O transurethral resection of prostate History of transurethral resection of prostate S/P tonsillectomy Family History: Family History (Updated 11/22/18 @ 16:03 by Na Renae RN) Father Heart disease Daughter Multiple myeloma Sister Osteosarcoma pelvic mass Other Family history non-contributory Social History: Patient Lives/Resources With Spouse Utilized Occupation Retired Preferred Language Lithuanian Do you have any mormon or No cultural preference? Smoking Status Former smoker Have you smoked in the past 12 No months Do you dip or chew tobacco No Abuse History No History of abuse Psych History No pertinent hx Alcohol Use none Drug Use none (Last Updated 11/29/18 @ 15:00 by Aidan Urena DO) No Social History Section defined Review Of Systems (GEN) - Review of Systems Generalized/Overall Review: Present: Weakness, Fatigue. Absent: Chills, Fever EENTM: Present: No Symptoms Reported Respiratory: Present: No Symptoms Reported Cardiac: Present: No Symptoms Reported Abdominal: Present: No Symptoms Reported Genitourinary: Present: No Symptoms Reported Musculoskeletal: Present: No Symptoms Reported Neurological: Present: No Symptoms Reported Skin: Present: No Symptoms Reported Endocrine: Present: No Symptoms Reported Immunizations: IMMUNIZATION HX Immunizations Up to Date No History of Influenza Vaccine No Hx Pneumococcal Vaccination No Allergies/Adverse Reactions: Allergies Allergy/AdvReac Type Severity Reaction Status Date / Time Penicillins Allergy Severe Hives, Verified 12/26/18 07:26 throat swelling Home Medications: HOME MEDICATIONS Tamsulosin HCl [Flomax] 0.4 mg PO DAILY@1800 #30 cap.sr.24h 10/18/18 [Last Taken Unknown] diltiazem 60 mg tablet 60 mg PO Q8H #90 tab 11/19/18 [Last Taken Unknown] Prochlorperazine Maleate [Compazine] 10 mg PO PRN PRN 11/24/18 [Last Taken Unknown] amiodarone 200 mg tablet 400 mg PO Q8H #180 tab 12/10/18 [Last Taken Unknown] Cetirizine HCl [Wal-Zyr] 10 mg PO DAILY PRN 12/26/18 [Last Taken Unknown] Clonazepam 0.5 mg PO HS 12/26/18 [Last Taken Unknown] Fluticasone Propionate [Flonase Allergy Relief] 1 spray INTRANASAL DAILY PRN 12/26/18 [Last Taken Unknown] Furosemide [Lasix] 40 mg PO QAM PRN 12/26/18 [Last Taken Unknown] Ondansetron [Zofran Odt] 4 mg PO Q8H PRN 12/26/18 [Last Taken Unknown] Sennosides [Senna Lax] 8.6 mg PO BID PRN 12/26/18 [Last Taken Unknown] Exam - Exam Vital Signs: Vital Signs - Last Taken Temp 36.9 C 12/26/18 09:43 Pulse 89 12/26/18 09:43 Resp 16 12/26/18 09:43 BP 110/64 12/26/18 09:43 Pulse Ox 97 12/26/18 09:43 Constitutional: Present: Alert, Oriented x3, No distress, Somnolent, Elderly, Overweight ENT Exam: Present: hard of hearing. Absent: nasal congestion, nasal drainage Neck: Present: non-tender, supple Respiratory: Present: lungs clear, normal breath sounds Cardiovascular/Chest: Present: regular rate, rhythm, edema - Trace Abdomen: Present: soft, nontender, hypoactive /Rectal: Present: Exam deferred Skin Exam: Present: normal color, warm/dry Appearance: Present: denies illness, impaired insight Eye contact: Present: cooperative, good eye contact Thoughts: Present: normal mood /affect Diagnostic Studies: Abnormal Lab Results 12/26/18 12/26/18 12/26/18 Range/Units 03:35 03:35 04:18 WBC 15.6 H (4.0-10.5) K/mm3 RBC 3.83 L (4.7-6.0) M/mm3 Hgb 11.9 L (13.5-18.0) gm/dL Hct 34.9 L (42.0-52.0) % MCH 31.1 H (27-31) pg RDW 14.4 H (11.5-14.0) % Immature Gran % (Auto) 1.90 H (0.001-0.429) % Immature Gran # (Auto) 0.29 H (0.000-0.0310) K/mm3 Neutrophils % 92.6 H (42-75.0) % Lymphocytes % 3.2 L (20-51) % Neutrophils # 14.4 H (1.3-6.0) K/mm3 Lymphocytes # 0.50 L (1.5-3.5) k/mm3 Chloride 96 L (97-106) mmol/L Random Glucose 199 H (70-110) mg/dL Total Bilirubin 1.8 H (0.0-1.1) mg/dL Albumin 2.6 L (3.4-5.0) gm/dl Urine Protein 100 H (NEGATIVE) mg/dL Urine Glucose (UA) 100 H (NEGATIVE) mg/dL Prot Sulfosalicylic Acd 2+ H (0) mg/dL Urine Bacteria 1+ H (NONE) Laboratory Results WBC 15.6 K/mm3 (4.0-10.5) H 12/26/18 03:35 RBC 3.83 M/mm3 (4.7-6.0) L 12/26/18 03:35 Hgb 11.9 gm/dL (13.5-18.0) L 12/26/18 03:35 Hct 34.9 % (42.0-52.0) L 12/26/18 03:35 MCV 91.1 fl (78-100) 12/26/18 03:35 MCH 31.1 pg (27-31) H 12/26/18 03:35 MCHC 34.1 g/dl (32-36) 12/26/18 03:35 RDW 14.4 % (11.5-14.0) H 12/26/18 03:35 Plt Count 156 K/mm3 (150-450) 12/26/18 03:35 MPV 10.5 fl (8-11.3) 12/26/18 03:35 Immature Gran % (Auto) 1.90 % (0.001-0.429) H 12/26/18 03:35 Immature Gran # (Auto) 0.29 K/mm3 (0.000-0.0310) H 12/26/18 03:35 92.6 % (42-75.0) H 12/26/18 03:35 3.2 % (20-51) L 12/26/18 03:35 1.8 % (0.0-9) 12/26/18 03:35 0.2 % (0.0-3.0) 12/26/18 03:35 0.3 % (0.0-1.0) 12/26/18 03:35 Nucleated RBC % 0.0 k/mm3 (0-1) 12/26/18 03:35 14.4 K/mm3 (1.3-6.0) H 12/26/18 03:35 0.50 k/mm3 (1.5-3.5) L 12/26/18 03:35 0.3 k/mm3 (0.0-1.0) 12/26/18 03:35 0.0 k/mm3 (0.0-0.7) 12/26/18 03:35 Absolute Basophils 0.1 k/mm3 (0.0-0.1) 12/26/18 03:35 Sodium 133 mmol/L (132-142) 12/26/18 03:35 135 mmol/L (130-142) 12/26/18 03:35 Potassium 3.5 mmol/L (3.4-4.6) 12/26/18 03:35 Chloride 96 mmol/L (97-106) L 12/26/18 03:35 Carbon Dioxide 30.2 mmol/L (24-32.6) 12/26/18 03:35 10.3 mmol/L (6.8-13.8) 12/26/18 03:35 BUN 22 mg/dL (6-23) 12/26/18 03:35 1.05 mg/dL (0.4-1.4) 12/26/18 03:35 Est GFR (Non-Af Amer) 72 mL/min (60-130) 12/26/18 03:35 21.0 (9.0-21.6) 12/26/18 03:35 199 mg/dL (70-110) H 12/26/18 03:35 Calcium 8.6 mg/dL (7.9-10.9) 12/26/18 03:35 Calcium Adj for Albumin 9.4 mg/dL (8.4-10.2) 12/26/18 03:35 1.8 mg/dL (0.0-1.1) H 12/26/18 03:35 AST 20 U/L (0-48) 12/26/18 03:35 ALT 35 U/L (19-67) 12/26/18 03:35 86 U/L (50-170) 12/26/18 03:35 6.2 gm/dL (6.2-8.2) 12/26/18 03:35 2.6 gm/dl (3.4-5.0) L 12/26/18 03:35 Dark yellow 12/26/18 04:18 Cloudy (CLEAR) 12/26/18 04:18 6.0 pH (5.0-7.0) 12/26/18 04:18 Ur Specific [place] 1.025 SP.GR. (1.005-1.030) 12/26/18 04:18 100 mg/dL (NEGATIVE) H 12/26/18 04:18 100 mg/dL (NEGATIVE) H 12/26/18 04:18 5 mg/dL (NEGATIVE) 12/26/18 04:18 Negative /ul (NEGATIVE) 12/26/18 04:18 Negative (NEGATIVE) 12/26/18 04:18 Negative mg/dl (NEGATIVE) 12/26/18 04:18 Prot Sulfosalicylic Acd 2+ mg/dL (0) H 12/26/18 04:18 Normal EU/dl (NORMAL) 12/26/18 04:18 Ur Leukocyte Esterase Negative /ul (NEGATIVE) 12/26/18 04:18 None seen /hpf (0-5) 12/26/18 04:18 0-5 /hpf (0-5) 12/26/18 04:18 Ur Epithelial Cells None seen /hpf (0-5) 12/26/18 04:18 Amorphous Sediment Few - 1+ (NONE-FEW) 12/26/18 04:18 1+ (NONE) H 12/26/18 04:18 Culture to follow 12/26/18 04:18 Assessment/Plan - Narrative Narrative: Patient sleeping comfortably in his bed this morning. Unable to wake up fully to discuss treatment options and plan of care. Will wait for family to arrive for in-depth discussion as to where we go from here. Apparently they are wanted help with care and are open to the idea of skilled nursing versus assisted living facilities. Unsure as to what his insurance to pay for the qualify for though case management seems to think up stuck with a relatively large bill if they go that route. We will also discuss continuing treatment plan for his cancer and if this is the best options for him. Patient does state that he feels like he needs to urinate but is unable to empty his bladder. Previous stay here found him to have an obstructive uropathy where he was requiring straight cath for voiding. We discussed this with the nurses and order bladder scans to be done as needed as well as straight caths and outs with greater than 250 mL's post void residual. Otherwise his vital signs are stable and he is comfortable. We will follow-up later today with family once they arrive. - Assessment/Plan (1) Pancreatic cancer Problem: Acute Qualifiers: Pancreatic malignancy location: unspecified Qualified Code(s): C25.9 - Malignant neoplasm of pancreas, unspecified (2) Weakness Problem: Acute (3) Declining performance status Problem: Acute (4) Acute urinary retention Problem: Acute
[2018-12-27] MEDS: MAGNESIUM HYDROXIDE 30 ML UDC PO ONE ×2 (09:35→10:32)
[2018-12-27] MEDS ORDERED: MORPHINE SULFATE 10 MG/0.5 ML SYRINGE PO PRN (11:15)
--- NOTE | 2018-12-27 12:13 | DS ---
(1) Pancreatic cancer Problem: Acute Qualifiers: Pancreatic malignancy location: unspecified Qualified Code(s): C25.9 - Malignant neoplasm of pancreas, unspecified (2) Weakness Problem: Acute (3) Declining performance status Problem: Acute (4) Acute urinary retention Problem: Acute Description of Stay: 83-year-old male who presented to the ER for extreme fatigue and weakness following second round of chemotherapy for pancreatic cancer. He was initially admitted due to unable to perform ADLs or provide any self-care wh atsoever and family felt he was unsafe to be at home. The plan was to get him set up with a nursing facility but then the family decided that going home with hospice was a better option. Hospice was consulted and are taken over his care following discharge today. Comfort medications to be given only at this time, will stop his diltiazem and amiodarone. We will start him on Lorazepam 3 times daily 0.5 mg, patient able to take 1 full milligram nightly to help sleep. We will also provide morphine concentrate 5 mg every 2 hours as needed. Patient was discharged home in serious condition. His diet will be as tolerated. Procedures Performed: none Results and Findings: Pending Mircobiology Results 12/26/18 04:20 Urine,Catheterized Urine Culture - Preliminary No Growth Lab Pending Results 12/26/18 03:35: WBC 15.6 H, RBC 3.83 L, Hgb 11.9 L, Hct 34.9 L, MCV 91.1, MCH 31.1 H, MCHC 34.1, RDW 14.4 H, Plt Count 156, MPV 10.5, Immature Gran % (Auto) 1.90 H, Immature Gran # (Auto) 0.29 H, Neutrophils % 92.6 H, Lymphocytes % 3.2 L, Monocytes % 1.8, Eosinophils % 0.2, Basophils % 0.3, Nucleated RBC % 0.0, Neutrophils # 14.4 H, Lymphocytes # 0.50 L, Monocytes # 0.3, Eosinophils # 0.0, Absolute Basophils 0.1 12/26/18 03:35: Sodium 133, Plasma Sodium 135, Potassium 3.5, Chloride 96 L, Carbon Dioxide 30.2, Anion Gap 10.3, BUN 22, Creatinine 1.05, Est GFR (Non-Af Amer) 72, BUN/Creatinine Ratio 21.0, Random Glucose 199 H, Calcium 8.6, Calcium Adj for Albumin 9.4, Total Bilirubin 1.8 H, AST 20, ALT 35, Alkaline Phosphatase 86, Total Protein 6.2, Albumin 2.6 L 12/26/18 04:18: Urine Color Dark yellow, Urine Appearance Cloudy, Urine pH 6.0, Ur Specific [place] 1.025, Urine Protein 100 H, Urine Glucose (UA) 100 H, Urine Ketones 5, Urine Blood Negative, Urine Nitrate Negative, Urine Bilirubin Negative, Prot Sulfosalicylic Acd 2+ H, Urine Urobilinogen Normal, Ur Leukocyte Esterase Negative, Urine RBC None seen, Urine WBC 0-5, Ur Epithelial Cells None seen, Amorphous Sediment Few - 1+, Urine Bacteria 1+ H, Urine Culture Comments Culture to follow Discharge Location: Home Disposition: Hospice Home [place] [facility] Agency: [facility] Hospice Condition: Serious Discharge Activity: Activity as tolerated Discharge Diet: General/regular food Additional Patient Instructions (free text): Has [facility] ongoing, please call and fax discharge information to them. Prescriptions (Any new or edited meds): LORazepam [Ativan] 0.5 mg PO TID #120 tab Morphine Sulfate [Morphine Sulfate Conc. Oral Solution] 5 mg PO Q2H PRN #100 syringe PRN Reason: Pain Complete Home Medications List: Complete Home Medication List: Tamsulosin HCl [Flomax] 0.4 mg PO DAILY@1800 #30 cap.sr.24h 10/18/18 Prochlorperazine Maleate [Compazine] 10 mg PO PRN PRN 11/24/18 Cetirizine HCl [Wal-Zyr] 10 mg PO DAILY PRN 12/26/18 Fluticasone Propionate [Flonase Allergy Relief] 1 spray INTRANASAL DAILY PRN 12/26/18 Furosemide [Lasix] 40 mg PO QAM PRN 12/26/18 Ondansetron [Zofran Odt] 4 mg PO Q8H PRN 12/26/18 Sennosides [Senna Lax] 8.6 mg PO BID PRN 12/26/18 LORazepam [Ativan] 0.5 mg PO TID #120 tab 12/27/18 Morphine Sulfate [Morphine Sulfate Conc. Oral Solution] 5 mg PO Q2H PRN #100 syringe 12/27/18
[2018-12-27] MEDS ORDERED: LORazepam 0.5 MG TABLET PO SCH (13:00)
[2018-12-27] MEDS ORDERED: NYSTATIN 15 APPL BTL TP PRN (14:42)
[2018-12-27 16:21] VITALS: BP 116/66
== END 2018-12-27 16:47 | disposition hospice, home (50) ==
LOC: ER 02:58 → MS 07:06 → INTOOBSV 07:06 → MS 07:25
PROVIDERS: ADMIT Family Medicine; ATTEND Family Medicine
DX: W19.XXXA Unspecified fall, initial encounter; R53.1 Weakness; R33.9 Retention of urine, unspecified; C25.9 Malignant neoplasm of pancreas, unspecified
CPT/HCPCS: 36415; 51702; 71020; 71046; 80053; 81001; 85025; 87086; 96361; 96374; 99285; G0378; J2405

== ENCOUNTER 2019-02-16 18:38 | Observation (INO) ==
[2019-02-16] MEDS ORDERED: NORMAL SALINE 1,000 ML IV ONE (20:06)
[2019-02-16 20:20] LABS: Hematocrit 42.9 % (42.0-52.0); Hemoglobin 14.4 gm/dL (13.5-18.0); Mean Cell Volume 93.5 fl (78-100); Mean Corpuscular Hemoglobin 31.4 pg (27-31); Mean Corpuscular Hgb Conc 33.6 g/dl (32-36); Mean Platelet Volume 9.2 fl (8-11.3); Neutrophil # 9.2 K/mm3 (1.3-6.0); Platelet Count 392 K/mm3 (150-450); Red Blood Count 4.59 M/mm3 (4.7-6.0); Red Cell Distribution Width 14.9 % (11.5-14.0); White Blood Count 11.3 K/mm3 (4.0-10.5)
[2019-02-16 20:37] LABS: Albumin * 2.9 gm/dl (3.4-5.0); Anion Gap 14.4 mmol/L (6.8-13.8); BUN/Creatinine Ratio 13.2 (9.0-21.6); Bilirubin, Total 3.2 mg/dL (0.0-1.1); Ca. Corrected For Albumin 9.8 mg/dL (8.4-10.2); Calcium * 9.2 mg/dL (7.9-10.9); Carbon Dioxide 28.6 mmol/L (24-32.6); Total Protein 7.2 gm/dL (6.2-8.2)
--- NOTE | 2019-02-16 20:46 | ERNOTE ---
Abdominal HPI - Narrative Date of Service: 02/16/19 - General Chief Complaint: Abdominal Pain Time Seen by Provider: 02/16/19 20:07 Source: patient, family - Immun/Allergies/Home Medications Immunizatons: IMMUNIZATION HX Immunizations Up to Date Yes History of Influenza Vaccine No Hx Pneumococcal Vaccination No Allergies/Adverse Reactions: Allergies Penicillins Allergy (Severe, Verified 02/16/19 18:50) Hives, throat swelling Home Medications: HOME MEDICATIONS FLUoxetine HCL [Prozac] 10 mg PO DAILY 02/16/19 [Last Taken Unknown] LORazepam [Ativan] 0.5 mg PO TID 02/16/19 [Last Taken Unknown] Sennosides/Docusate Sodium [Senexon-S Tablet] 1 ea PO BID 02/16/19 [Last Taken Unknown] Tamsulosin HCl [Flomax] 0.4 mg PO DAILY@1800 02/16/19 [Last Taken Unknown] - History of Present Illness Narrative: This is an 83-year-old gentleman with a history of pancreatic cancer diagnosed 10 months ago comes into the ER complaining of abdominal pain, decreased energy, generalized weakness, and just not feeling good. He says his stomach feels "all upset ". The patient says the symptoms started 2 days ago. Of importance 3 days ago the patient's was placed in a fpc due to a bladder infection. She is expected to be there for only a few days. Since then the patient says he does not have any energy to get up and move around in today started having abdominal pain which is very new and unusual for him. The patient says that he really cannot describe the abdominal discomfort any other than to say "it feels upset ". No vomiting but he did have some nausea yesterday. He denies shortness of breath or chest pain. Denies fever. Says his bowels have been moving. Denies any other complaints Review of Systems - Review of Systems Constitutional: Present: weakness, fatigue, malaise EYE: Present: no symptoms reported ENT: Present: no symptoms reported Respiratory: Present: no symptoms reported Cardiology: Present: no symptoms reported Gastrointestinal/Abdominal: Present: See HPI Genitourinary: Present: no symptoms reported Musculoskeletal: Present: no symptoms reported Skin: Present: no symptoms reported Neurological: Present: no symptoms reported Endocrine: Present: no symptoms reported Hematologic/Lymphatic: Present: no symptoms reported Psych: Present: no symptoms reported Medical History (Updated 12/26/18 @ 10:34 by Aidan Urena DO) CHF (congestive heart failure), NYHA class IV (Acute) Acute liver failure Adenocarcinoma of pancreas Atrial flutter BPH (benign prostatic hyperplasia) FH: chemotherapy Obstructive jaundice Pancreatic cancer Tobacco use since childhood/ most half pack per day Surgical History: Surgical History (Updated 11/27/18 @ 15:21 by Aidan Urena DO) H/O left knee surgery from football injury in his 20's H/O transurethral resection of prostate History of transurethral resection of prostate S/P tonsillectomy Family History: Family History (Updated 11/22/18 @ 16:03 by Na Renae RN) Father Heart disease Daughter Multiple myeloma Sister Osteosarcoma pelvic mass Other Family history non-contributory Social History: Preferred Language Dominican Do you have any scientology or No cultural preference? Smoking Status Never smoker Abuse History No History of abuse Psych History No pertinent hx Alcohol Use none Drug Use none (Last Updated 11/29/18 @ 15:00 by Aidan Urena DO) No Social History Section defined Physical Exam - Physical Exam General Appearance: Present: wd/wn, alert, no apparent distress Head Exam: Present: normal inspection, no evidence of injury Eye Exam: Normal inspection: bilateral, PERRL: bilateral, EOMI: bilateral Neck: Present: normal inspection, nontender Respiratory: Present: no respiratory distress, normal breath sounds, chest nontender, lungs clear Cardiovascular/Chest: Present: regular rate, rhythm, no murmur Gastrointestinal/Abdominal: Present: normal bowel sounds, nontender, nondistended, soft Back Exam: Present: normal inspection, normal range of motion, no CVA tenderness, no vertebral tenderness Extremity Exam: Present: normal inspection, normal range of motion, no edema Neurological Exam: Present: alert, oriented, other - Flat affect, flat mood. No overt motor or sensory deficits are noted Skin Exam: Present: normal color, warm/dry Lymphatic Exam: Present: no adenopathy Progress - Results and Orders Patient's Lab Results:: I have reviewed the patient's lab results. - Vital Signs Patient's Vital Signs:: I have reviewed the patient's vital signs. Vital Signs: Vital Signs 02/16/19 18:46 02/16/19 19:35 Temperature 36.4 C Pulse Rate 84 90 Respiratory Rate 18 20 Blood Pressure 112/68 109/71 O2 Sat by Pulse Oximetry 95 97 - X-Ray X-Ray #1 X-Ray: abdomen Interpretation: Interp. by me X-ray Comments: Nonspecific bowel gas pattern - Progress/Reassessment Chief Complaint: Abdominal Pain Plan - Plan Plan: This is an 83-year-old gentleman with generalized weakness and inability to care for himself at home and a "funny feeling "in his abdomen. He appears clinically to be depressed. Flat affect flat mood not making eye contact. He is also slightly confused. This may all be a result of the bladder infection. His bilirubin is slightly up from previously. At this time I do not feel strongly he needs an emergency CAT scan in the ER as he is elected not have any further treatment for the cancer. Admitting him to the hospital with IV antibiotics overnight as appropriate. If you become strong enough he could go home if not he will need to consider placement Departure Clinical Impression: Urinary tract infection - Departure Disposition: Still a patient Condition: Fair Referrals: Aidan Urena DO [Primary Care Provider] -
[2019-02-16 20:52] LABS: Urine Bilirubin 3 mg/dl (NEGATIVE); Urine Blood Negative /ul (NEGATIVE); Urine Ketone 5 mg/dL (NEGATIVE); Urine Nitrite Negative (NEGATIVE); Urine Protein 15 mg/dL (NEGATIVE); Urine Specific Gravity 1.015 SP.GR. (1.005-1.030); Urine Urobilinogen >=8.0 EU/dl (NORMAL)
[2019-02-16 21:07] LABS: Urine Appearance Slightly Cloudy (CLEAR); Urine Bacteria 1+; Urine Color Dark Yellow; Urine Mucus Moderate - 2+; Urine RBC TRACE /hpf (0-5)
[2019-02-16] MEDS ORDERED: cefTRIAXone SODIUM 1,000 MG/100 ML BAG IV ONE (21:21)
--- NOTE | 2019-02-17 09:59 | HP ---
Chief Complaint - Chief Complaint Date of Service: 02/17/19 Time of Service: 09:56 Chief Complaint: abdominal discomfort, weakness History of Present Illness: Patient with PMHx of pancreatic cancer receiving hospice benefits started developing some abdominal discomfort over the past few days. He stopped cancer treatments last month because he could not tolerate them. He has had swallowing difficulty, and can only swallow liquids, so he's been losing weight. His was admitted to the [facility] earlier this week. He has been having trouble with depression, and prozac was started a few days ago. He hasn't been sleeping well. He normally can walk to the bathroom, but has been too weak to do so since yesterday. With his abdominal discomfort, he asked to be brought to the ED and revoke his hospice benefits temporarily, but would like to resume. He has not had a bowel movement in a few days. Medical History (Updated 02/17/19 @ 09:59 by Martita Solitario DO) CHF (congestive heart failure), NYHA class IV (Acute) Acute liver failure Adenocarcinoma of pancreas Atrial flutter BPH (benign prostatic hyperplasia) FH: chemotherapy Obstructive jaundice Pancreatic cancer Tobacco use since childhood/ most half pack per day Surgical History: Surgical History (Updated 11/27/18 @ 15:21 by Aidan Urena DO) H/O left knee surgery from football injury in his 20's H/O transurethral resection of prostate History of transurethral resection of prostate S/P tonsillectomy Family History: Family History (Updated 11/22/18 @ 16:03 by Na Renae RN) Father Heart disease Daughter Multiple myeloma Sister Osteosarcoma pelvic mass Other Family history non-contributory Social History: Patient Lives/Resources With Spouse Utilized Occupation retired Preferred Language Dominican Do you have any jain or No cultural preference? Smoking Status Never smoker Have you smoked in the past 12 No months Abuse History No History of abuse Psych History No pertinent hx Alcohol Use none Drug Use none (Last Updated 11/29/18 @ 15:00 by Aidan Urena DO) No Social History Section defined Review Of Systems (GEN) - Review of Systems Generalized/Overall Review: Present: Weight loss - 50 lbs, intentional. Absent: Chills, Fever Respiratory: Absent: Cough, Shortness of Breath Cardiac: Present: Chest Pain. Absent: Edema Abdominal: Present: Abdominal Pain, Constipation Genitourinary: Absent: Dysuria Musculoskeletal: Present: No Symptoms Reported Neurological: Present: Weakness Skin: Present: No Symptoms Reported Immunizations: IMMUNIZATION HX Immunizations Up to Date Yes History of Influenza Vaccine No Hx Pneumococcal Vaccination No Allergies/Adverse Reactions: Allergies Allergy/AdvReac Type Severity Reaction Status Date / Time Penicillins Allergy Severe Hives, Verified 02/16/19 22:19 throat swelling Home Medications: HOME MEDICATIONS FLUoxetine HCL [Prozac] 10 mg PO DAILY 02/16/19 [Last Taken Unknown] LORazepam [Ativan] 0.5 mg PO TID 02/16/19 [Last Taken Unknown] Sennosides/Docusate Sodium [Senexon-S Tablet] 1 ea PO BID 02/16/19 [Last Taken Unknown] Tamsulosin HCl [Flomax] 0.4 mg PO DAILY@1800 02/16/19 [Last Taken Unknown] Exam - Exam Vital Signs: Vital Signs - Last Taken Temp 36.3 C 02/17/19 07:12 Pulse 92 02/17/19 07:12 Resp 18 02/17/19 07:12 BP 104/65 02/17/19 07:12 Pulse Ox 93 02/17/19 07:12 Constitutional: Present: Alert, Elderly - frail. Appears chronically ill. Respiratory: Present: lungs clear, decreased breath sounds Cardiovascular/Chest: Present: regular rate, rhythm Abdomen: Present: nontender, hypoactive Extremity: Absent: lower extremity edema Eye contact: Present: cooperative, other - flat affect Diagnostic Studies: Abnormal Lab Results 02/16/19 02/16/19 02/16/19 Range/Units 20:10 20:10 20:26 WBC 11.3 H (4.0-10.5) K/mm3 RBC 4.59 L (4.7-6.0) M/mm3 MCH 31.4 H (27-31) pg RDW 14.9 H (11.5-14.0) % Immature Gran # (Auto) 0.04 H (0.000-0.0310) K/mm3 Neutrophils % 82.0 H (42-75.0) % Lymphocytes % 7.9 L (20-51) % Neutrophils # 9.2 H (1.3-6.0) K/mm3 Lymphocytes # 0.89 L (1.5-3.5) k/mm3 Anion Gap 14.4 H (6.8-13.8) mmol/L Total Bilirubin 3.2 H (0.0-1.1) mg/dL AST 65 H (0-48) U/L Alkaline Phosphatase 383 H (50-170) U/L Albumin 2.9 L (3.4-5.0) gm/dl Lipase 42 L (73-393) U/L Urine Protein 15 H (NEGATIVE) mg/dL Urine Bilirubin 3 H (NEGATIVE) mg/dl Urine Urobilinogen >=8.0 H (NORMAL) EU/dl Ur Leukocyte Esterase 25 H (NEGATIVE) /ul Urine WBC 10-25 H (0-5) /hpf Urine Bacteria 1+ H (NONE) Urine Mucus Moderate - 2+ H (NONE) Microbiology 02/16/19 20:30 Urine Culture - Preliminary Urine,Voided No Growth Laboratory Results WBC 11.3 K/mm3 (4.0-10.5) H 02/16/19 20:10 RBC 4.59 M/mm3 (4.7-6.0) L 02/16/19 20:10 Hgb 14.4 gm/dL (13.5-18.0) 02/16/19 20:10 Hct 42.9 % (42.0-52.0) 02/16/19 20:10 MCV 93.5 fl (78-100) 02/16/19 20:10 MCH 31.4 pg (27-31) H 02/16/19 20:10 MCHC 33.6 g/dl (32-36) 02/16/19 20:10 RDW 14.9 % (11.5-14.0) H 02/16/19 20:10 Plt Count 392 K/mm3 (150-450) 02/16/19 20:10 MPV 9.2 fl (8-11.3) 02/16/19 20:10 Immature Gran % (Auto) 0.40 % (0.001-0.429) 02/16/19 20:10 Immature Gran # (Auto) 0.04 K/mm3 (0.000-0.0310) H 02/16/19 20:10 82.0 % (42-75.0) H 02/16/19 20:10 7.9 % (20-51) L 02/16/19 20:10 8.4 % (0.0-9) 02/16/19 20:10 0.9 % (0.0-3.0) 02/16/19 20:10 0.4 % (0.0-1.0) 02/16/19 20:10 Nucleated RBC % 0.0 k/mm3 (0-1) 02/16/19 20:10 9.2 K/mm3 (1.3-6.0) H 02/16/19 20:10 0.89 k/mm3 (1.5-3.5) L 02/16/19 20:10 1.0 k/mm3 (0.0-1.0) 02/16/19 20:10 0.1 k/mm3 (0.0-0.7) 02/16/19 20:10 Absolute Basophils 0.0 k/mm3 (0.0-0.1) 02/16/19 20:10 Sodium 139 mmol/L (132-142) 02/16/19 20:10 139 mmol/L (130-142) 02/16/19 20:10 Potassium 4.0 mmol/L (3.4-4.6) 02/16/19 20:10 Chloride 100 mmol/L (97-106) 02/16/19 20:10 Carbon Dioxide 28.6 mmol/L (24-32.6) 02/16/19 20:10 14.4 mmol/L (6.8-13.8) H 02/16/19 20:10 BUN 14 mg/dL (6-23) 02/16/19 20:10 1.06 mg/dL (0.4-1.4) 02/16/19 20:10 Est GFR (Non-Af Amer) 71 mL/min (60-130) 02/16/19 20:10 13.2 (9.0-21.6) 02/16/19 20:10 109 mg/dL (70-110) 02/16/19 20:10 1.2 mmol/L (0.4-2.0) 02/16/19 20:10 Calcium 9.2 mg/dL (7.9-10.9) 02/16/19 20:10 Calcium Adj for Albumin 9.8 mg/dL (8.4-10.2) 02/16/19 20:10 3.2 mg/dL (0.0-1.1) H 02/16/19 20:10 AST 65 U/L (0-48) H 02/16/19 20:10 ALT 66 U/L (19-67) 02/16/19 20:10 383 U/L (50-170) H 02/16/19 20:10 7.2 gm/dL (6.2-8.2) 02/16/19 20:10 2.9 gm/dl (3.4-5.0) L 02/16/19 20:10 42 U/L (73-393) L 02/16/19 20:10 Dark yellow 02/16/19 20:26 Slightly cloudy (CLEAR) 02/16/19 20:26 6.0 pH (5.0-7.0) 02/16/19 20:26 Ur Specific [place] 1.015 SP.GR. (1.005-1.030) 02/16/19 20:26 15 mg/dL (NEGATIVE) H 02/16/19 20:26 Negative mg/dL (NEGATIVE) 02/16/19 20:26 5 mg/dL (NEGATIVE) 02/16/19 20:26 Negative /ul (NEGATIVE) 02/16/19 20:26 Negative (NEGATIVE) 02/16/19 20:26 3 mg/dl (NEGATIVE) H 02/16/19 20:26 Negative (NEGATIVE) 02/16/19 20:26 Prot Sulfosalicylic Acd Negative mg/dL (0) 02/16/19 20:26 >=8.0 EU/dl (NORMAL) H 02/16/19 20:26 Ur Leukocyte Esterase 25 /ul (NEGATIVE) H 02/16/19 20:26 Trace /hpf (0-5) 02/16/19 20:26 10-25 /hpf (0-5) H 02/16/19 20:26 Ur Epithelial Cells 0-5 /hpf (0-5) 02/16/19 20:26 1+ (NONE) H 02/16/19 20:26 Moderate - 2+ (NONE) H 02/16/19 20:26 Culture to follow 02/16/19 20:26 Assessment/Plan - Assessment/Plan (1) Abdominal discomfort Assessment: Improved this morning. This developed after he started the prozac. Spoke with Lizzie Marquez, who offered more background information. Mr. Oakes has been significantly depressed. Would like to continue this. He has other reasons for the abdominal discomfort. His cancer is likely progressing, plus he is under more stress since his is not at home, and is at the [facility]. Will need to discuss with him if he would like to continue the prozac. Problem: Acute (2) Pancreatic cancer Assessment: Stopped treatment last month. He was receiving hospice benefits, but his son-in-law reports this was cancelled since he went to the ED. He would like to resume hospice benefits. Will coordinate this tomorrow with [facility] hospice. With his cancer diagnosis and weight loss, he is an appropriate hospice candidate. Problem: Chronic Qualifiers: (3) CHF (congestive heart failure), NYHA class IV Problem: Chronic (4) Atrial fibrillation Problem: Chronic (5) Weakness Assessment: Likely secondary to his decreased po intake. He is unable to swallow solids, so will give full liquid diet. Problem: Acute (6) Dysphagia Assessment: Given that he is receiving hospice benefits for pancreatic cancer, no further workup needed. Resume full liquid diet. Problem: Chronic
[2019-02-17] MEDS: SENNOSIDES/DOCUSATE SODIUM 1 TAB TABLET PO SCH ×2 (10:15→20:17)
[2019-02-17] MEDS: LORazepam 0.5 MG TABLET PO SCH ×3 (10:15→17:24)
[2019-02-17] MEDS ORDERED: BISACODYL 10 MG SUPP.RECT RC PRN (13:48)
[2019-02-17] MEDS: POLYETHYLENE GLYCOL 3350 17 GM PACKET PO SCH (14:19)
[2019-02-17] MEDS ORDERED: TAMSULOSIN HCL 0.4 MG CAP.SR.24H PO SCH (18:00)
[2019-02-18] MEDS: SENNOSIDES/DOCUSATE SODIUM 1 TAB TABLET PO SCH (09:30)
[2019-02-18] MEDS: POLYETHYLENE GLYCOL 3350 17 GM PACKET PO SCH (09:30)
[2019-02-18] MEDS: LORazepam 0.5 MG TABLET PO SCH (09:30)
--- NOTE | 2019-02-18 09:36 | DS ---
(1) Abdominal discomfort Problem: Resolved (2) Pancreatic cancer Problem: Chronic Qualifiers: (3) CHF (congestive heart failure), NYHA class IV Problem: Chronic (4) Atrial fibrillation Problem: Chronic (5) Weakness Problem: Acute (6) Dysphagia Problem: Chronic Description of Stay: Patient with PMHx of pancreatic cancer receiving hospice benefits started developing some abdominal discomfort over the past few days. He stopped cancer treatments last month because he could not tolerate them. He has had swallowing difficulty, and can only swallow liquids, so he's been losing weight. His was admitted to the [facility] earlier this week. He has been having trouble with depression, and prozac was started a few days ago. He hasn't been sleeping well. He normally can walk to the bathroom, but has been too weak to do so since yesterday. With his abdominal discomfort, he asked to be brought to the ED and revoke his hospice benefits temporarily, but would like to resume. He had not had a bowel movement in a few days. He did have a BM during his stay. His abdominal pain resolved, and he wanted to resume hospice benefits. His son in law would like to take him home. Will not continue the prozac, but will increase his ativan dose to 1 mg tid. Procedures Performed: none Results and Findings: Lab Pending Results 02/16/19 20:10: WBC 11.3 H, RBC 4.59 L, Hgb 14.4, Hct 42.9, MCV 93.5, MCH 31.4 H, MCHC 33.6, RDW 14.9 H, Plt Count 392, MPV 9.2, Immature Gran % (Auto) 0.40, Immature Gran # (Auto) 0.04 H, Neutrophils % 82.0 H, Lymphocytes % 7.9 L, Monocytes % 8.4, Eosinophils % 0.9, Basophils % 0.4, Nucleated RBC % 0.0, Neutrophils # 9.2 H, Lymphocytes # 0.89 L, Monocytes # 1.0, Eosinophils # 0.1, Absolute Basophils 0.0 02/16/19 20:10: Sodium 139, Plasma Sodium 139, Potassium 4.0, Chloride 100, Carbon Dioxide 28.6, Anion Gap 14.4 H, BUN 14, Creatinine 1.06, Est GFR (Non-Af Amer) 71, BUN/Creatinine Ratio 13.2, Random Glucose 109, Calcium 9.2, Calcium Adj for Albumin 9.8, Total Bilirubin 3.2 H, AST 65 H, ALT 66, Alkaline Phosphatase 383 H, Total Protein 7.2, Albumin 2.9 L, Lipase 42 L 02/16/19 20:10: Lactic Acid, Venous 1.2 02/16/19 20:26: Urine Color Dark yellow, Urine Appearance Slightly cloudy, Urine pH 6.0, Ur Specific [place] 1.015, Urine Protein 15 H, Urine Glucose (UA) Negative, Urine Ketones 5, Urine Blood Negative, Urine Nitrate Negative, Urine Bilirubin 3 H, Urine Ictotest Negative, Prot Sulfosalicylic Acd Negative, Urine Urobilinogen >=8.0 H, Ur Leukocyte Esterase 25 H, Urine RBC Trace, Urine WBC 10- 25 H, Ur Epithelial Cells 0-5, Urine Bacteria 1+ H, Urine Mucus Moderate - 2+ H, Urine Culture Comments Culture to follow Discharge Location: Home Disposition: Hospice Home Home Health Agency: [facility] Hospice Condition: Fair Discharge Activity: Activity as tolerated Discharge Diet: Full Liquids Referrals: Aidan Urena DO [Primary Care Provider] - (Patient is resuming hospice benefits, and does not need follow up appt with PCP.) Additional Patient Instructions (free text): -Please make TCM appointment unless prison discharge, or if following up with outside provider. Thank you! Macie @ [phone] or Martita at [phone]. Prescriptions (Any new or edited meds): Bisacodyl [Dulcolax Suppository] 10 mg RC DAILY PRN #30 supp.rect PRN Reason: Constipation Lorazepam 1 mg PO TID #1 bottle Polyethylene Glycol 3350 [Miralax] 17 gm PO DAILY #1 bottle Complete Home Medications List: Complete Home Medication List: Sennosides/Docusate Sodium [Senexon-S Tablet] 1 ea PO BID 02/16/19 Tamsulosin HCl [Flomax] 0.4 mg PO DAILY@1800 02/16/19 Bisacodyl [Dulcolax Suppository] 10 mg RC DAILY PRN #30 supp.rect 02/18/19 Lorazepam 1 mg PO TID #1 bottle 02/18/19 Polyethylene Glycol 3350 [Miralax] 17 gm PO DAILY #1 bottle 02/18/19
[2019-02-18 11:33] VITALS: BP 110/81
== END 2019-02-18 11:15 | disposition hospice, home (50) ==
LOC: MS 18:38 → ER 18:38 → INTOOBSV 21:35 → OBSVTOIN 21:35 → MS 22:03
PROVIDERS: ADMIT Family Medicine; ATTEND Family Medicine
CPT/HCPCS: 36415; 74019; 74020; 80053; 81001; 83605; 83690; 85025; 87086; 96361; 96365; 99285; G0378